=== PATIENT | male | born 1930 | race Caucasian/White ===

== ENCOUNTER 2018-05-11 18:51 | Inpatient (IN) | payer MEDICARE ==
[2018-05-11] MEDS ORDERED: Sodium Chloride 0.9% 1000 ML 1,000 ML IV STA ×2 (19:21→21:31)
--- NOTE | 2018-05-11 19:30 | ERPHSYRPT ---
- History of Present Illness Time Seen by Provider: 05/11/18 19:15 Source: patient Exam Limitations: no limitations Patient Subjective Stated Complaint: AMS, weakness, not seen in 24+ hours Triage Nursing Assessment: Pt presents to the ED with complaints of AMS per family. Family states pt lives alone, last seen normal was Wednesday morning at 0700. Pt has slurred speech on arrival, head start teacher weak but equal, no distress noted , skin pwd. Pt has slurred speech, face symmetrical. Abrasion noted to left ribs. Family states pt was found on floor at home. Physician History: 88 y/o male brought in by family after being found on the floor for over 24 hours. The son spoke to his father yesterday morning and he seemed fine. However , the last time the patient was seen was almost 2 days ago at which time the patient was fine. This afternoon, the son found him on the floor, very lethargic and confused. Pt did urinate on himself. According to the family, he appears very confused and say that this is not his baseline. In the ER, patient has no complaints but does arrive with a contusion on his right forehead and left lower ribs. Occurred: yesterday Reason for Fall: unknown Injuries/Pain Location: head, chest Loss of Consciousness: unsure Allergies/Adverse Reactions: morphine Allergy (Mild, Verified 05/11/18 19:22) Hx Tetanus, Diphtheria Vaccination/Date Given: Yes Hx Influenza Vaccination/Date Given: Yes Hx Pneumococcal Vaccination/Date Given: Yes Immunizations Up to Date: Yes - Review of Systems Constitutional: Weakness, No Fever, No Chills Eyes: No Symptoms Ears, Nose, & Throat: No Symptoms Respiratory: No Cough, No Dyspnea Cardiac: No Chest Pain, No Edema, No Syncope Abdominal/Gastrointestinal: No Abdominal Pain, No Nausea, No Vomiting, No Diarrhea Genitourinary Symptoms: No Dysuria Musculoskeletal: No Back Pain, No Neck Pain Skin: No Rash Neurological: Lethargy, No Dizziness, No Focal Weakness, No Sensory Changes Psychological: No Symptoms Endocrine: No Symptoms All Other Systems: Reviewed and Negative - Past Medical History Pertinent Past Medical History: No Neurological History: No Pertinent History ENT History: No Pertinent History Cardiac History: Myocardial Infarction ([place]) Respiratory History: No Pertinent History Endocrine Medical History: No Pertinent History Musculoskeletal History: No Pertinent History GI Medical History: No Pertinent History History: No Pertinent History Psycho-Social History: No Pertinent History Male Reproductive Disorders: No Pertinent History - Past Surgical History Past Surgical History: Yes Neuro Surgical History: No Pertinent History Cardiac: CABG Respiratory: No Pertinent History Gastrointestinal: Hernia Repair Genitourinary: No Pertinent History Musculoskeletal: No Pertinent History Male Surgical History: No Pertinent History Other Surgical History: CABG March 2012, Hernia repair April, - Social History Smoking Status: Former smoker Exposure to second hand smoke: No Drug Use: none Patient Lives Alone: No - Nursing Vital Signs Nursing Vital Signs: Initial Vital Signs Temperature 98.4 F 05/11/18 19:15 Pulse Rate 60 05/11/18 19:15 Respiratory Rate 21 05/11/18 19:15 Blood Pressure 173/56 05/11/18 19:15 O2 Sat by Pulse Oximetry 98 05/11/18 19:15 Pain Scale Pain Intensity 0 - Claudio Coma Score Best Eye Response (Cornell): (4) open spontaneously Best Verbal Response (Cornell): (5) oriented Best Motor Response ([place]): (6) obeys commands Cornell Total: 15 - Physical Exam General Appearance: alert, lethargy, cachetic Head Injury: ecchymosis Eye Exam: PERRL/EOMI, eyes nml inspection ENT Exam: airway nml Neck Exam: supple, trachea midline, normal inspection, No tenderness Respiratory/Chest Exam: normal breath sounds, No chest tenderness, No respiratory distress Cardiovascular Exam: normal heart sounds, regular rate/rhythm Gastrointestinal Exam: soft, normal bowel sounds, No tenderness, No distention, No guarding, No ecchymosis Back Exam: normal inspection, normal range of motion, No vertebral tenderness Extremity Exam: normal inspection, normal range of motion, pelvis stable, No deformities Neurologic Exam: alert, oriented x 3, cooperative, sensation nml, No motor deficits Skin Exam: normal color, warm, dry SpO2: 98 Oxygen Delivery: Room Air - Course Nursing assessment & vital signs reviewed: Yes EKG Interpreted by Me: NORMAL AXIS, NORMAL INTERVALS, Left Bundle Branch Block, Other (HR 62) Ordered Tests: Active Orders 24 hr Category Date Time Status EKG-ER Only STAT Care 05/11/18 19:21 Active Carnes [Catheter-Charlotte Carnes] STAT Care 05/11/18 22:53 Active IV Insertion STAT Care 05/11/18 19:21 Active Straigth Cath [Cath for Specimen-Straight] STAT Care 05/11/18 22:26 Active ABDOMEN AND PELVIS W/0 CONTRAS [CT] Stat Exams 05/11/18 19:33 Taken CERVICAL SPINE WO CONTRAST [CT] Stat Exams 05/11/18 19:22 Taken CHEST WITHOUT CONTRAST [CT] Stat Exams 05/11/18 19:22 Taken HEAD WITHOUT CONTRAST [CT] Stat Exams 05/11/18 19:22 Taken LUMBAR SPINE W/O [CT] Stat Exams 05/11/18 19:22 Taken CBC W DIFF Stat Lab 05/11/18 19:20 Completed CK-Creatinine Phosphokinase Stat Lab 05/11/18 19:20 Completed CMP Stat Lab 05/11/18 19:20 Completed CULTURE,URINE Stat Lab 05/11/18 23:45 Received ETHYL ALCOHOL Stat Lab 05/11/18 19:20 Completed PROTIME WITH INR Stat Lab 05/11/18 19:20 Completed PTT Stat Lab 05/11/18 19:20 Completed TROPONIN Q3H Lab 05/11/18 19:20 Completed TROPONIN Q3H Lab 05/11/18 22:45 Completed UA W/ MICROSCOPIC Stat Lab 05/11/18 23:45 Completed Urine Triage Profile Stat Lab 05/11/18 19:21 Ordered Medication Summary Generic Name Dose Route Start Last Admin Trade Name Freq PRN Reason Stop Dose Admin Sodium Chloride 1,000 mls @ 100 mls/hr 05/12/18 00:15 Sodium Chloride 0.9% 1000 Ml IV 06/11/18 00:14 .Q10H STACEY Ceftriaxone Sodium/Dextrose 1 g in 50 mls @ 100 mls/hr 05/12/18 00:17 Rocephin 1 Gm-D5w 50 Ml Bag IV 05/12/18 00:46 STAT ONE Discontinued Medications Generic Name Dose Route Start Last Admin Trade Name Freq PRN Reason Stop Dose Admin Sodium Chloride 1,000 mls @ 999 mls/hr 05/11/18 19:21 05/11/18 20:37 Sodium Chloride 0.9% 1000 Ml IV 05/11/18 20:21 Infused .Q1H1M STA Infusion Sodium Chloride Confirm 05/11/18 19:38 Sodium Chloride 0.9% 1000 Ml Administered 05/11/18 19:39 Dose 1,000 mls @ ud .ROUTE .STK-MED ONE Sodium Chloride Confirm 05/11/18 20:33 Sodium Chloride 0.9% 1000 Ml Administered 05/11/18 20:34 Dose 1,000 mls @ ud .ROUTE .STK-MED ONE Sodium Chloride 1,000 mls @ 999 mls/hr 05/11/18 21:31 05/11/18 22:09 Sodium Chloride 0.9% 1000 Ml IV 05/11/18 22:31 Infused .Q1H1M STA Infusion Lab/Rad Data: Laboratory Result Diagrams 05/11/18 19:20 05/11/18 19:20 Laboratory Results 05/11/18 05/11/18 05/11/18 Range/Units 23:45 22:45 20:10 WBC (4.0-10.5) K/mm3 RBC (4.1-5.6) M/mm3 Hgb (12.5-18.0) gm/dl Hct (42-50) % MCV (78-100) fl MCH (26-32) pg MCHC (32-36) g/dl RDW (11.5-14.0) % Plt Count (150-450) K/mm3 MPV (6-9.5) fl Gran % (36.0-66.0) % Eos # (Auto) (0-0.5) Absolute Lymphs (auto) (1.0-4.6) Absolute Monos (auto) (0.0-1.3) Lymphocytes % (24.0-44.0) % Monocytes % (0.0-12.0) % Eosinophils % (0.00-5.0) % Basophils % (0.0-0.4) % Absolute Granulocytes (1.4-6.9) Basophils # (0-0.4) PT (8.83-12.87) SECONDS INR (0.8-3.0) APTT (24.1-36.1) SECONDS Sodium (137-145) mmol/L Potassium (3.5-5.1) mmol/L Chloride (98-107) mmol/L Carbon Dioxide (22-30) mmol/L Anion Gap (5-15) MEQ/L BUN (9-20) mg/dL Creatinine (0.66-1.25) mg/dL Estimated GFR ML/MIN Glucose (74-106) mg/dL Calcium (8.4-10.2) mg/dL Total Bilirubin (0.2-1.3) mg/dL AST (17-59) U/L ALT (0-50) U/L Alkaline Phosphatase (38-126) U/L Creatine Kinase (55-170) U/L Troponin I 0.654 H* (0.000-0.034) ng/mL Serum Total Protein (6.3-8.2) g/dL Albumin (3.5-5.0) g/dL Ur Collection Type VOID Urine Color BROWN (YELLOW) Urine Appearance VERY CLOUDY (CLEAR) Urine pH 5.0 (5-6) Ur Specific [place] 1.025 (1.005-1.025) Urine Protein 100 (Negative) Urine Ketones SMALL (NEGATIVE) Urine Blood LARGE (0-5) Angelo/ul Urine Nitrite NEGATIVE (NEGATIVE) Urine Bilirubin NEGATIVE (NEGATIVE) Urine Urobilinogen NORMAL (0-1) mg/dL Ur Leukocyte Esterase TRACE (NEGATIVE) Urine Microscopic RBC >100 (0-2) /HPF Urine Microscopic WBC 10-15 (0-5) /HPF Ur Epithelial Cells FEW (FEW) /HPF Urine Bacteria MODERATE (NEGATIVE) /HPF Urine Culture Reflexed YES (NO) Urine Glucose NEGATIVE (NEGATIVE) mg/dL Ethyl Alcohol (0-10) mg/dL Slides for Path Review Specimen Received 05/11 2345 ABO Group O Rh Factor POSITIVE Antibody Screen NEGATIVE (NEGATIVE) 05/11/18 05/11/18 05/11/18 Range/Units 19:20 19:20 19:20 WBC (4.0-10.5) K/mm3 RBC (4.1-5.6) M/mm3 Hgb (12.5-18.0) gm/dl Hct (42-50) % MCV (78-100) fl MCH (26-32) pg MCHC (32-36) g/dl RDW (11.5-14.0) % Plt Count (150-450) K/mm3 MPV (6-9.5) fl Gran % (36.0-66.0) % Eos # (Auto) (0-0.5) Absolute Lymphs (auto) (1.0-4.6) Absolute Monos (auto) (0.0-1.3) Lymphocytes % (24.0-44.0) % Monocytes % (0.0-12.0) % Eosinophils % (0.00-5.0) % Basophils % (0.0-0.4) % Absolute Granulocytes (1.4-6.9) Basophils # (0-0.4) PT 14.6 H (8.83-12.87) SECONDS INR 1.25 (0.8-3.0) APTT 30.8 (24.1-36.1) SECONDS Sodium (137-145) mmol/L Potassium (3.5-5.1) mmol/L Chloride (98-107) mmol/L Carbon Dioxide (22-30) mmol/L Anion Gap (5-15) MEQ/L BUN (9-20) mg/dL Creatinine (0.66-1.25) mg/dL Estimated GFR ML/MIN Glucose (74-106) mg/dL Calcium (8.4-10.2) mg/dL Total Bilirubin (0.2-1.3) mg/dL AST (17-59) U/L ALT (0-50) U/L Alkaline Phosphatase (38-126) U/L Creatine Kinase > 1600 H (55-170) U/L Troponin I 0.677 H* (0.000-0.034) ng/mL Serum Total Protein (6.3-8.2) g/dL Albumin (3.5-5.0) g/dL Ur Collection Type Urine Color (YELLOW) Urine Appearance (CLEAR) Urine pH (5-6) Ur Specific [place] (1.005-1.025) Urine Protein (Negative) Urine Ketones (NEGATIVE) Urine Blood (0-5) Angelo/ul Urine Nitrite (NEGATIVE) Urine Bilirubin (NEGATIVE) Urine Urobilinogen (0-1) mg/dL Ur Leukocyte Esterase (NEGATIVE) Urine Microscopic RBC (0-2) /HPF Urine Microscopic WBC (0-5) /HPF Ur Epithelial Cells (FEW) /HPF Urine Bacteria (NEGATIVE) /HPF Urine Culture Reflexed (NO) Urine Glucose (NEGATIVE) mg/dL Ethyl Alcohol (0-10) mg/dL Slides for Path Review Specimen Received ABO Group Rh Factor Antibody Screen (NEGATIVE) 05/11/18 05/11/18 Range/Units 19:20 19:20 WBC 16.8 H (4.0-10.5) K/mm3 RBC 4.46 (4.1-5.6) M/mm3 Hgb 13.2 (12.5-18.0) gm/dl Hct 38.0 L (42-50) % MCV 85.2 (78-100) fl MCH 29.6 (26-32) pg MCHC 34.7 (32-36) g/dl RDW 13.9 (11.5-14.0) % Plt Count 135 L (150-450) K/mm3 MPV 10.3 H (6-9.5) fl Gran % 85.7 H (36.0-66.0) % Eos # (Auto) 0 (0-0.5) Absolute Lymphs (auto) 0.82 L (1.0-4.6) Absolute Monos (auto) 1.56 H (0.0-1.3) Lymphocytes % 4.9 L (24.0-44.0) % Monocytes % 9.3 (0.0-12.0) % Eosinophils % 0.0 (0.00-5.0) % Basophils % 0.1 (0.0-0.4) % Absolute Granulocytes 14.42 H (1.4-6.9) Basophils # 0.01 (0-0.4) PT (8.83-12.87) SECONDS INR (0.8-3.0) APTT (24.1-36.1) SECONDS Sodium 143 (137-145) mmol/L Potassium 4.4 (3.5-5.1) mmol/L Chloride 109 H (98-107) mmol/L Carbon Dioxide 21 L (22-30) mmol/L Anion Gap 18.0 H (5-15) MEQ/L BUN 58 H (9-20) mg/dL Creatinine 1.75 H (0.66-1.25) mg/dL Estimated GFR 39.3 ML/MIN Glucose 102 (74-106) mg/dL Calcium 9.6 (8.4-10.2) mg/dL Total Bilirubin 2.20 H (0.2-1.3) mg/dL AST 539 H (17-59) U/L ALT 124 H (0-50) U/L Alkaline Phosphatase 64 (38-126) U/L Creatine Kinase (55-170) U/L Troponin I (0.000-0.034) ng/mL Serum Total Protein 5.6 L (6.3-8.2) g/dL Albumin 3.5 (3.5-5.0) g/dL Ur Collection Type Urine Color (YELLOW) Urine Appearance (CLEAR) Urine pH (5-6) Ur Specific [place] (1.005-1.025) Urine Protein (Negative) Urine Ketones (NEGATIVE) Urine Blood (0-5) Angelo/ul Urine Nitrite (NEGATIVE) Urine Bilirubin (NEGATIVE) Urine Urobilinogen (0-1) mg/dL Ur Leukocyte Esterase (NEGATIVE) Urine Microscopic RBC (0-2) /HPF Urine Microscopic WBC (0-5) /HPF Ur Epithelial Cells (FEW) /HPF Urine Bacteria (NEGATIVE) /HPF Urine Culture Reflexed (NO) Urine Glucose (NEGATIVE) mg/dL Ethyl Alcohol < 10 (0-10) mg/dL Slides for Path Review YES Specimen Received ABO Group Rh Factor Antibody Screen (NEGATIVE) - Progress Progress: improved Progress Note: 05/12/18 00:34 The patient has a CPK over 1600 and has a UTI. Pt has been giving 2 bags of NS fluids and a dose of rocephin for the UTI. 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 The CT chest/abd/pelvis shows a fatty liver but no other acute findings. Pt has an elevation in his liver enzymes. Pt has a troponin elevation which has come down. The patient has shown improvement in his mental state and looks better. Pt has been admitted to Dr Sommers for rhabomyolysis and UTI. 05/12/18 00:40 - Departure Time of Disposition: 00:42 Departure Disposition: In-patient Admission Clinical Impression: Rhabdomyolysis Qualifiers: Rhabdomyolysis type: non-traumatic Qualified Code(s): M62.82 - Rhabdomyolysis UTI (urinary tract infection) Qualifiers: Urinary tract infection type: acute cystitis Hematuria presence: without hematuria Qualified Code(s): N30.00 - Acute cystitis without hematuria Altered mental state Qualifiers: Altered mental status type: unspecified Qualified Code(s): R41.82 - Altered mental status, unspecified Condition: Fair Critical Care Time: Yes Critical Care Time(excluding separately billable procedures): 30-74 minutes Referrals: JEFF ARDON [Primary Care Provider] -
[2018-05-11] MEDS ORDERED: Sodium Chloride 0.9% 1000 ML 1,000 ML ONE ×2 (19:38→20:33)
[2018-05-11 20:26] LABS: BASOPHIL % 0.1 % (0.0-0.4); Basophil (Absolute #) 0.01 (0-0.4); Eosinophil (Absolute #) 0 (0-0.5); Granulocyte Absolute (ANC) 14.42 (1.4-6.9); Granulocytes % 85.7 % (36.0-66.0); Hemoglobin 13.2 gm/dl (12.5-18.0); Lymphocyte (Absolute #) 0.82 (1.0-4.6); Lymphocytes % 4.9 % (24.0-44.0); Mean Cell Volume 85.2 fl (78-100); Mean Corpuscular Hemoglobin 29.6 pg (26-32); Mean Corpuscular Hgb Concent. 34.7 g/dl (32-36); Mean Platelet Volume 10.3 fl (6-9.5); Monocyte (Absolute #) 1.56 (0.0-1.3); Monocytes % 9.3 % (0.0-12.0); Platelet Count 135 K/mm3 (150-450); Red Blood Count 4.46 M/mm3 (4.1-5.6); Red Cell Distribution Width 13.9 % (11.5-14.0); White Blood Count 16.8 K/mm3 (4.0-10.5)
[2018-05-11 20:42] LABS: INR 1.25 (0.8-3.0)
[2018-05-11 20:44] LABS: PTT 30.8 SECONDS (24.1-36.1)
[2018-05-11 20:48] LABS: ALBUMIN 3.5 g/dL (3.5-5.0); ALKALINE PHOSPHATASE 64 U/L (38-126); BLOOD UREA NITROGEN 58 mg/dL (9-20); CHLORIDE 109 mmol/L (98-107); Calcium 9.6 mg/dL (8.4-10.2); Carbon Dioxide 21 mmol/L (22-30); Creatinine 1 1.75 mg/dL (0.66-1.25); Glucose 102 mg/dL (74-106); Potassium 4.4 mmol/L (3.5-5.1); SGOT/AST 539 U/L (17-59); SGPT/ALT 124 U/L (0-50); SODIUM 143 mmol/L (137-145); Total Protein 5.6 g/dL (6.3-8.2)
[2018-05-11 20:51] LABS: ETHYL ALCOHOL < 10 mg/dL (0-10)
[2018-05-11 21:51] LABS: ABO TYPING O; Antibody Screen NEGATIVE (NEGATIVE); RH TYPING POSITIVE
[2018-05-11 22:22] LABS: Slide Review 1 YES
[2018-05-12 00:08] LABS: Appearance VERY CLOUDY (CLEAR); Specific Gravity 1.025 (1.005-1.025)
[2018-05-12 00:09] LABS: Bilirubin NEGATIVE (NEGATIVE); Blood LARGE Ery/ul (0-5); Glucose NEGATIVE (NEGATIVE); Ketones SMALL (NEGATIVE); Leukocyte Esterase TRACE (NEGATIVE); Nitrite NEGATIVE (NEGATIVE); Protein,Urine Dip 100 (Negative); Urobilinogen NORMAL mg/dL (0-1)
[2018-05-12 00:10] LABS: Bacteria MODERATE /HPF (NEGATIVE); Epithelial Cells FEW /HPF (FEW); RBC >100 /HPF (0-2)
[2018-05-12] MEDS ORDERED: Sodium Chloride 0.9% 1000 ML 1,000 ML IV SCH ×2 (00:15→00:45)
[2018-05-12] MEDS ORDERED: ROCEPHIN 1 Gm-D5w 50 ml Bag** 1 G/50 ML IVPB IV ONE ×2 (00:17→00:50)
[2018-05-12 01:36] LABS: Amphetamine,Urine NEGATIVE (NEGATIVE); Barbiturate,Urine NEGATIVE (NEGATIVE); Benzodiazepine,Urine NEGATIVE (NEGATIVE); Cocaine,Urine NEGATIVE (NEGATIVE); Methadone,Urine NEGATIVE (NEGATIVE); Opiate,Urine NEGATIVE (NEGATIVE); PCP,Urine NEGATIVE (NEGATIVE); THC,Urine NEGATIVE (NEGATIVE)
[2018-05-12] MEDS ORDERED: Haldol 5 MG IM ONE ×2 (04:50→05:04)
[2018-05-12] MEDS ORDERED: Haldol 5 MG ONE (04:57)
[2018-05-12 06:02] LABS: BASOPHIL % 0.1 % (0.0-0.4); Basophil (Absolute #) 0.01 (0-0.4); Eosinophil (Absolute #) 0 (0-0.5); Granulocyte Absolute (ANC) 14.21 (1.4-6.9); Granulocytes % 86.7 % (36.0-66.0); Hematocrit 37.9 % (42-50); Hemoglobin 12.9 gm/dl (12.5-18.0); Lymphocyte (Absolute #) 0.79 (1.0-4.6); Lymphocytes % 4.8 % (24.0-44.0); Mean Cell Volume 85.6 fl (78-100); Mean Corpuscular Hemoglobin 29.1 pg (26-32); Mean Platelet Volume 10.8 fl (6-9.5); Monocyte (Absolute #) 1.38 (0.0-1.3); Monocytes % 8.4 % (0.0-12.0); Platelet Count 131 K/mm3 (150-450); Red Blood Count 4.43 M/mm3 (4.1-5.6); White Blood Count 16.4 K/mm3 (4.0-10.5)
[2018-05-12 07:21] LABS: ALBUMIN 3.5 g/dL (3.5-5.0); BILIRUBIN,TOTAL 1.5 mg/dL (0.2-1.3); Calcium 9.1 mg/dL (8.4-10.2); Creatinine 1 1.59 mg/dL (0.66-1.25); Potassium 4.3 mmol/L (3.5-5.1); Total Protein 5.7 g/dL (6.3-8.2)
[2018-05-12 07:45] LABS: ANION GAP 16.3 MEQ/L (5-15)
[2018-05-12 07:47] LABS: TROPONIN 0.497 ng/mL (0.000-0.034)
[2018-05-12] MEDS ORDERED: PHARMACY DOSING REQUEST MC ONE (08:53)
--- NOTE | 2018-05-12 08:54 | XRAY ---
Indication: Acute mental status change. Status post fall. Multiple contiguous axial images obtained through the head without contrast. Comparison: None Left ear hearing aid produces beam artifact limiting these levels. 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 Age-appropriate global atrophy and moderate periventricular degenerative micro-ischemia bilaterally. No acute intracranial hemorrhage, abnormal extra-axial fluid collection, or mass effect. Fourth ventricle is midline. Bony calvarium intact. Visualized paranasal sinuses and mastoid air cells are clear. Impression: 1. Left hearing aid artifact. 2. No gross acute intracranial abnormalities. 3. Incidental atrophy, degenerative micro-ischemia, and old left parietal infarct. CT DI 59.47
[2018-05-12] MEDS ORDERED: Dextrose 5% -0.45 NaCl 1000 ML 1,000 ML IV SCH (09:00)
--- NOTE | 2018-05-12 09:04 | XRAY ---
Indication: Acute mental status change. Status post fall. Multiple contiguous axial images obtained through the abdomen and pelvis without contrast as ordered. Comparison: None CT chest reported separately. Noncontrasted stomach and bowel loops appear nonobstructed. There is moderate diffuse scattered colonic fecal debris throughout. Also scattered colonic diverticulosis greatest in the sigmoid without evidence for diverticulitis. No free fluid/air. Fatty liver, enlarged prostate gland, and previous cholecystectomy. Remaining liver, pancreas, spleen, adrenal glands, kidneys, ureters, and bladder appear unremarkable for noncontrast exam. Heavy scattered vascular calcifications including renal arteries bilaterally. 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 Also bilateral L5 spondylolysis with 10 mm spondylolisthesis. Tiny left femur head bone island and tiny bilateral femur head subcortical cysts. Impression: 1. No acute intra-abdominal/pelvic abnormalities on this noncontrast exam. 2. Fecal stasis without obstruction. Also diffuse colonic diverticulosis without diverticulitis. 2. Incidental fatty liver and enlarged prostate gland. 3. Bony findings including multilevel degenerative spondylosis, dextrorotoscoliosis, and L5 spondylolysis with grade [address] DI 13.59
--- NOTE | 2018-05-12 09:06 | XRAY ---
Indication: Acute mental status change. Status post fall. Multiple contiguous axial images obtained through the cervical spine. Sagittal and coronal reformatted images obtained. Comparison: None Age-related osteopenia. Axial images negative for acute fracture, suspicious bony lesions, or spinal canal stenosis. Mild C3-T1 degenerative endplate spurring and mild multilevel bilateral degenerative facet arthropathy. Sagittal and coronal reformatted images demonstrates lordotic reversal, positional versus paraspinal spasm. C3-T1 disc space loss. No acute compression fracture, subluxation, or jumped facet. Normal-appearing craniocervical junction. CT head and CT chest spine reported separately. Impression: 1. Cervical lordotic reversal, positional versus paraspinal spasm. 2. Negative acute fracture/subluxation. 3. Osteopenia and multilevel degenerative changes. CT DI 44.78
[2018-05-12] MEDS: Zosyn 3.375GM/100 Ml D5W 3.375 GM/100 ML IVPB IV SCH ×2 (09:54→22:19)
[2018-05-12] MEDS: PROTONIX 40 MG IV IV SCH (10:10)
--- NOTE | 2018-05-12 10:26 | HP ---
HISTORY OF PRESENT ILLNESS: This is an 88 year-old man who presented to the emergency department with one of his sons. I spoke with Piyush Alberto this morning. He stated he last talked to his dad Wednesday and then checked on him last night which would have been Wednesday night and found him on the floor. He stated it looked like maybe had tripped when he was trying to take his pants off and had probably hit his head either on a coffee table. His glasses were under the table in the living room or bedroom and then he drug himself into the kitchen and was lying on one of his hips. He reports that he is usually fairly healthy. He usually follows up at the [facility] for his medical care. He had not been complaining of any problems recently. He does have a history of coronary artery disease and had double bypass March 2012. His son also reported having 7 inches of his thoracic aorta removed. He said he does take an aspirin every day but does not really follow up with a dollyman since then except at the [facility]. He states he has always been pretty thin and weighed 142 pounds when he was at the [facility] last fall. No history of any hepatitis. He has had his gallbladder taken out in the . He has not been complaining of any abdominal pain. He did become combative and pulled out his IV overnight and required Haldol 1 mg IM once. REVIEW OF SYSTEMS: Today the patient seems to have some right upper quadrant pain and epigastric pain. Although when asked denies any pain at this time. He was not complaining of any pain to his family when he was last spoken to. No history of any liver problems. He does not drink alcohol they said. Otherwise review of systems is unobtainable due to altered mental status. PAST MEDICAL HISTORY: Benign prostatic hypertrophy, coronary artery disease. PAST SURGICAL HISTORY: Cholecystectomy. Hernia repair March 2012. Double bypass and aorta operation in March 2012. MEDICATIONS: Please see the home medication list. ALLERGIES: MORPHINE MAKES HIM ANGRY. SOCIAL HISTORY: He lives alone. No alcohol. No tobacco that he smokes but he chews tobacco. He son states he eats three good meals a day. FAMILY HISTORY: His mother is . His father is and of jaw cancer at age 53. His sister is and of a stroke in her 70's. PHYSICAL EXAMINATION: VITAL SIGNS: Temperature current 97.4F, temperature max 98.4F, heart rate 16 to 20, respiratory rate 20 to 24, blood pressure 128 to 180 over 51 to 84, weight 57.1 kg. Oxygen saturation 93 to 98% on room air. GENERAL: The patient is lying in bed. He is sleeping. He does arouse when I ask him what his name is or where he is. I cannot understand what he is saying but when I asked other questions I can understand what he is saying. He denies any abdominal pain. CVS: He has a regular rate and rhythm. No murmurs, gallops or rubs are appreciated. CHEST: Clear to auscultation anteriorly. ABDOMEN: He has normal bowel sounds. Mild right upper quadrant and epigastric tenderness. No guarding. No rigidity. EXTREMITIES: No clubbing, cyanosis or edema. SKIN: He has some bruises on his forehead and hematoma on his right forearm. LABORATORY DATA AND TESTS: On admission his white blood cell count was 16,800 and now 16,400. International normalized ratio 1.2. Carbon dioxide 20. Creatinine 1.59. Bilirubin 1.5, AST 527, ALT 147. Troponin 0.653 on admission down to 0.499. Protein 5.7. UA revealed 10-15 white blood cells, moderate bacteria. Urine tox was negative. He also had small ketones in his urine and large blood. The urine was noted to be brown. He had CT scan of his abdomen and pelvis with no acute abnormalities. Head CT with no acute abnormalities. Cervical spine CT with no acute abnormalities. He also had chest CT and lumbar CT. I spoke with the radiologist. He said there were no acute findings on any of these studies. Please see the radiologist dictation for the full reports on these. EKG sinus arrhythmia with left bundle branch block. Heart rate 60 this a.m. ASSESSMENT AND PLAN: 1) ALTERED MENTAL STATUS: Will continue with close monitoring. He had the head CT that did not show any acute bleed. It may be related to dehydration as he may have been on the floor for 24 hours or more. 2) RHABDOMYOLYSIS: He has been getting IV fluids. I will recheck his CPK this morning. 3) ACUTE RENAL FAILURE: He is getting fluids. His potassium is within normal limits. I will recheck his creatinine in the a.m. 4) ELEVATED LIVER FUNCTION TEST: Checking a right upper quadrant ultrasound and hepatitis panel. 5) RIGHT UPPER QUADRANT EPIGASTRIC PAIN: I started Protonix and he has Tylenol ordered as needed for pain. Again will check gallbladder ultrasound. He was on ceftriaxone and changing this to Zosyn for broader coverage. 6) FALL: He is on fall precautions now. When he is able to will plan for PT evaluation. 7) ELEVATED TROPONINS: Will ask for the local dollyman to see him. 8) HISTORY OF CORONARY ARTERY DISEASE: Will continue with aspirin 81 mg daily. 9) HISTORY OF BENIGN PROSTATIC HYPERTROPHY. 10) THROMBOCYTOPENIA: Will recheck his CBC again in the morning and hold off on any Lovenox for deep venous thrombosis. 11) CODE STATUS: Code status was discussed with his sons as he wished to be a full code. 12) URINARY TRACT INFECTION: Urine culture in lab. Again, he received a dose of ceftriaxone and changed this to Zosyn. 13) DEEP VENOUS THROMBOSIS PROPHYLAXIS: I have ordered SCD and CHARU hose.
[2018-05-12] MEDS: Haldol 5 MG IM PRN ×2 (11:10→15:53)
--- NOTE | 2018-05-12 11:13 | XRAY ---
Indication: Acute mental status change. Status post fall. Multiple contiguous axial images obtained through the lumbar spine. Sagittal and coronal reformatted images obtained. Comparison: None Age-related osteopenia. Axial images negative for acute fracture or suspicious bony lesions. Moderate L2-S1 degenerative disc osteophyte complex with degenerative vacuum disc phenomena and bilateral degenerative facet arthropathy. Sagittal and coronal reformatted images demonstrates moderate dextrorotoscoliosis centered at L1-L2. L2-S1 disc space loss. No acute compression fracture. There is bilateral L5 spondylolysis with [address] abdomen/pelvis reported separately. Impression: 1. Negative acute fracture. 2. Osteopenia and multilevel degenerative disc disease. 3. Bilateral L5 spondylolysis with grade 2 spondylolisthesis. [address] DI 132.02
--- NOTE | 2018-05-12 11:16 | XRAY ---
Indication: Acute mental status change. Status post fall. Multiple contiguous axial images obtained through the chest without contrast as ordered. Comparison: None Lungs inflated with mild bilateral dependent atelectasis and biapical pleural parenchymal fibrosis/scarring. No suspicious pulmonary mass, infiltrate, effusion, or pneumothorax. Heart is enlarged with previous CABG surgery. Aorta is mildly arteriosclerotic. No pathologic mediastinal lymphadenopathy. Bony thorax intact with minimal degenerative changes throughout the spine and sternotomy wires. CT abdomen reported separately. Impression: 1. Cardiomegaly without CHF. 2. Bilateral dependent atelectasis and biapical fibrosis/scarring. 3. No acute cardiopulmonary abnormalities on this noncontrast exam. CT DI 12.96
--- NOTE | 2018-05-12 11:17 | XRAY ---
Indication: Elevated bilirubin and liver function testing. Cholecystectomy. Two-dimensional right upper quadrant abdominal sonogram performed. Comparison: None Internal Control Manager notes technically difficult exam due to uncooperative patient and excessive bowel loops. Gallbladder surgically absent. Common bile duct measures 4.9 mm. No abnormal intrahepatic biliary distention. Remaining visualized portions of the liver, pancreas, and right kidney appear sonographically unremarkable. Right kidney measures 7.9 cm in length. No ascites. Impression: Cholecystectomy. Remaining right upper quadrant sonogram negative.
[2018-05-12] MEDS: BABY ASPIRIN 81 MG CHEW PO SCH (11:22)
[2018-05-12 11:29] LABS: AMYLASE 99 U/L (30-110); LIPASE 22 U/L (23-300)
--- NOTE | 2018-05-12 12:02 | CONS ---
CONSULT DATE: 05/12/2018 BRIEF HISTORY: This is an 88 year-old male who was seen because of elevated troponin I. The patient is unable to give any meaningful historic information but I did gather from him that he denies any chest pains. Apparently he presented to the emergency room after a relative found him on the floor and was suspected that he might have hit his head on the coffee table. He is known to have coronary artery disease, has had coronary bypass surgery in March 2012. He usually goes to the [facility] for his general medical care. 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 The records are not available. CARDIAC RISK FACTORS: Negative for diabetes. He has a history of hypertension. He smokes. REVIEW OF SYSTEMS: Unobtainable at this time. PAST SURGICAL HISTORY: Includes coronary bypass surgery, hernia repair. HOME MEDICATIONS: Includes aspirin, calcium, Flomax. SOCIAL HISTORY: He lives alone. He chews tobacco. PHYSICAL EXAMINATION: His blood pressure is 173/56, heart rate 60, respirations about 14. GENERAL: The patient is an elderly male who is a little bit sedated. He received Haldol earlier. His speech is still intelligible. HEENT: Slightly pale conjunctivae. NECK: No obvious JVD. CHEST: Healed sternotomy scar. The breath sounds are harsh with some rhonchi. CARDIAC: Heart tones are somewhat diminished. The rhythm is regular. There is a grade 2/6 mid systolic murmur. ABDOMEN: Soft with normal bowel sounds. EXTREMITIES: There is trace edema with decreased distal pulses. 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 He also had left bundle branch block. Troponin I now is 0.449. Creatinine 1.59. Bilirubin 1.5. SGPT 147, AST 527. White blood cell 16.4 with hemoglobin 10.9, PLT 131,000. IMPRESSION: 1) Elevated troponin I this probably is due to either an ischemic event or secondary to his recent supply and demand mismatch. We are going to get a creatinine kinase to rule out rhabdomyolysis. His elevated troponin I also may be due to renal failure duration of which is unknown. 2) As far as the passing out spells are concerned, we need to rule out bradyarrhythmia. Will avoid any negative chronotropic agents. He will likely need a Holter monitor on discharge. An echocardiogram will be obtained to assess left ventricular systolic function. Currently he denies any chest pains. I will follow up with you.
[2018-05-12] MEDS ORDERED: DEXTROSE IV ONE (18:32)
[2018-05-12] MEDS ORDERED: WATER IV ONE (18:32)
[2018-05-12] MEDS ORDERED: SODIUM BICARBONATE 50 MEQ/50 ML ABBOJECT IV ONE (18:33)
[2018-05-12] MEDS ORDERED: Geodon 20 MG INJ IM PRN (18:34)
[2018-05-12] MEDS ORDERED: THIAMINE 200 MG/2 ML IV ONE (18:40)
--- NOTE | 2018-05-12 18:42 | PCM.NOTE ---
Date and Time: 05/12/181836 Subjective Assessment: improving mental status concern over the elevation in his CK per cardiology unclear if nephrology will be able to see him tonight he states he would rather be then have to live with all this stuff hooked up to him right now His family is at bedside. Objective Exam General Appearance: no apparent distress, alert, other (oriented to person and place) Skin Exam: other (extensive abrasions) Eye Exam: other (pin point pupils) Respiratory Exam: normal breath sounds, lungs clear Cardiovascular Exam: regular rate/rhythm Gastrointestinal/Abdomen Exam: soft, normal bowel sounds, No tenderness Extremity Exam: No pedal edema OBJECTIVE DATA Vital Signs: Vital Signs - 24 hr Temp Pulse Resp BP Pulse Ox 05/12/18 16:29 97.7 F 84 20 132/94 95 05/12/18 12:00 98 F 84 20 118/68 96 05/12/18 07:23 97.7 F 78 20 128/68 95 05/12/18 04:00 97.8 F 78 16 132/84 93 L 05/12/18 02:56 97.8 F 61 20 180/71 98 05/12/18 00:43 98 05/12/18 00:40 60 18 97 05/11/18 23:11 69 16 159/59 97 05/11/18 22:05 65 18 177/51 98 05/11/18 19:15 98.4 F 60 21 173/56 98 Pain Assessment - Last Documented [facility] Intake and Output: Intake & Output 05/10/18 05/11/18 05/12/18 05/13/18 11:59 11:59 11:59 11:59 Intake Total 312 727 Output Total 950 Balance 312 -223 Weight 57.1 kg Lab Results: Lab Results-Last 24 Hours 05/12/18 05/12/18 05/12/18 Range/Units 05:00 05:10 07:00 WBC 16.4 H (4.0-10.5) K/mm3 RBC 4.43 (4.1-5.6) M/mm3 Hgb 12.9 (12.5-18.0) gm/dl Hct 37.9 L (42-50) % MCV 85.6 (78-100) fl MCH 29.1 (26-32) pg MCHC 34.0 (32-36) g/dl RDW 14.0 (11.5-14.0) % Plt Count 131 L (150-450) K/mm3 MPV 10.8 H (6-9.5) fl Gran % 86.7 H (36.0-66.0) % Eos # (Auto) 0 (0-0.5) Absolute Lymphs (auto) 0.79 L (1.0-4.6) Absolute Monos (auto) 1.38 H (0.0-1.3) Lymphocytes % 4.8 L (24.0-44.0) % Monocytes % 8.4 (0.0-12.0) % Eosinophils % 0.0 (0.00-5.0) % Basophils % 0.1 (0.0-0.4) % Absolute Granulocytes 14.21 H (1.4-6.9) Basophils # 0.01 (0-0.4) Sodium 143 (137-145) mmol/L Potassium 4.3 (3.5-5.1) mmol/L Chloride 111 H (98-107) mmol/L Carbon Dioxide 20 L (22-30) mmol/L Anion Gap 16.3 H (5-15) MEQ/L BUN 59 H (9-20) mg/dL Creatinine 1.59 H (0.66-1.25) mg/dL Estimated GFR 43.9 ML/MIN Glucose 101 (74-106) mg/dL Hemoglobin A1c (4.5-6.0) % Calcium 9.1 (8.4-10.2) mg/dL Total Bilirubin 1.50 H (0.2-1.3) mg/dL AST 527 H (17-59) U/L ALT 147 H (0-50) U/L Alkaline Phosphatase 64 (38-126) U/L Creatine Kinase (55-170) U/L Troponin I 0.497 H* 0.449 H* (0.000-0.034) ng/mL Serum Total Protein 5.7 L (6.3-8.2) g/dL Albumin 3.5 (3.5-5.0) g/dL Amylase (30-110) U/L Lipase (23-300) U/L TSH 3rd Generation (0.47-4.68) mIU/L 05/12/18 05/12/18 05/12/18 Range/Units 09:23 09:23 09:54 WBC (4.0-10.5) K/mm3 RBC (4.1-5.6) M/mm3 Hgb (12.5-18.0) gm/dl Hct (42-50) % MCV (78-100) fl MCH (26-32) pg MCHC (32-36) g/dl RDW (11.5-14.0) % Plt Count (150-450) K/mm3 MPV (6-9.5) fl Gran % (36.0-66.0) % Eos # (Auto) (0-0.5) Absolute Lymphs (auto) (1.0-4.6) Absolute Monos (auto) (0.0-1.3) Lymphocytes % (24.0-44.0) % Monocytes % (0.0-12.0) % Eosinophils % (0.00-5.0) % Basophils % (0.0-0.4) % Absolute Granulocytes (1.4-6.9) Basophils # (0-0.4) Sodium (137-145) mmol/L Potassium (3.5-5.1) mmol/L Chloride (98-107) mmol/L Carbon Dioxide (22-30) mmol/L Anion Gap (5-15) MEQ/L BUN (9-20) mg/dL Creatinine (0.66-1.25) mg/dL Estimated GFR ML/MIN Glucose (74-106) mg/dL Hemoglobin A1c (4.5-6.0) % Calcium (8.4-10.2) mg/dL Total Bilirubin (0.2-1.3) mg/dL AST (17-59) U/L ALT (0-50) U/L Alkaline Phosphatase (38-126) U/L Creatine Kinase 31384 H (55-170) U/L Troponin I (0.000-0.034) ng/mL Serum Total Protein (6.3-8.2) g/dL Albumin (3.5-5.0) g/dL Amylase 99 (30-110) U/L Lipase 22 L (23-300) U/L TSH 3rd Generation 1.150 (0.47-4.68) mIU/L 05/12/18 Range/Units 15:59 WBC (4.0-10.5) K/mm3 RBC (4.1-5.6) M/mm3 Hgb (12.5-18.0) gm/dl Hct (42-50) % MCV (78-100) fl MCH (26-32) pg MCHC (32-36) g/dl RDW (11.5-14.0) % Plt Count (150-450) K/mm3 MPV (6-9.5) fl Gran % (36.0-66.0) % Eos # (Auto) (0-0.5) Absolute Lymphs (auto) (1.0-4.6) Absolute Monos (auto) (0.0-1.3) Lymphocytes % (24.0-44.0) % Monocytes % (0.0-12.0) % Eosinophils % (0.00-5.0) % Basophils % (0.0-0.4) % Absolute Granulocytes (1.4-6.9) Basophils # (0-0.4) Sodium (137-145) mmol/L Potassium (3.5-5.1) mmol/L Chloride (98-107) mmol/L Carbon Dioxide (22-30) mmol/L Anion Gap (5-15) MEQ/L BUN (9-20) mg/dL Creatinine (0.66-1.25) mg/dL Estimated GFR ML/MIN Glucose (74-106) mg/dL Hemoglobin A1c 5.30 (4.5-6.0) % Calcium (8.4-10.2) mg/dL Total Bilirubin (0.2-1.3) mg/dL AST (17-59) U/L ALT (0-50) U/L Alkaline Phosphatase (38-126) U/L Creatine Kinase (55-170) U/L Troponin I (0.000-0.034) ng/mL Serum Total Protein (6.3-8.2) g/dL Albumin (3.5-5.0) g/dL Amylase (30-110) U/L Lipase (23-300) U/L TSH 3rd Generation (0.47-4.68) mIU/L Radiology Exams: Radiology Procedures Category Date Time Status ECHO W/2D AND DOPPLER [US] Routine Exams 05/12/18 12:00 Taken GALLBLADDER [US] Routine Exams 05/12/18 10:21 Completed Multi-Disciplinary Progress Notes: Multi-Disciplinary Progress Notes 05/12/18 09:29 Case Management Note by Roro Ambriz CALLED [facility] IN [place] [phone] AND S/W TIA, NO SERVICE CONNECTION FOR COVERAGE, USE MEDICARE AND MEDICAID, BUT PLEASE FAX CLINICALS TO [phone] FOR CONTINUITY OF CARE. Initialized on 05/12/18 09:29 - END OF NOTE 05/12/18 09:27 Pharmacy Note by Mehdi Love [facility] ZOSYN DOSING FOR ACUTE CHOLECYSTITIS PATIENT IS 88 YEAR OLD MALE WEIGHING 57 KG WITH ESTIMATED CREATININE CLEARANCE OF 25 ML/MIN WILL START HIM ON ZOSYN 3.375G IV Q 8 HRS AND ADJUST TOMORROW IF NEEDED Initialized on 05/12/18 09:27 - END OF NOTE Assessment/Plan (1) Rhabdomyolysis Current Visit: Yes Status: Acute Onset Date: ~05/12/18 Qualifiers: Rhabdomyolysis type: non-traumatic Qualified Code(s): M62.82 - Rhabdomyolysis Assessment & Plan: covering for Dr. Sommers his ck came back elevated and Dr. Garcia requested nephrology consult which was preformed but Dr. Gregory out and not clear if he will be seen tonight thus started on D5W with 150 mEq bicarb at 150 mL/h will repeat ck and bmp to monitor with his improved urine output and improved coloration of urine and mental status it appears to be improved continue reyes for accurate I/O measurement for now he is still suffering from delirium but his confusion is improving tonight but he is still trying to pull out the iv's intermittently but easier to reorient he can communicate appropriately and talk with intermittent confusion. the haloperidal didn't seem to help much will try change to low dose geodone at 10mg Dr. Garcia did see and orderd isoenzymes on the CK and echo that was preformed with results pending. his urine has improved to a clear dark yellow from brown this am per nursing Code(s): M62.82 - RHABDOMYOLYSIS (2) Acute kidney injury Current Visit: Yes Status: Acute Code(s): N17.9 - ACUTE KIDNEY FAILURE, UNSPECIFIED (3) UTI (urinary tract infection) Current Visit: Yes Status: Acute Onset Date: ~05/12/18 Qualifiers: Urinary tract infection type: acute cystitis Hematuria presence: without hematuria Qualified Code(s): N30.00 - Acute cystitis without hematuria Code(s): N39.0 - URINARY TRACT INFECTION, SITE NOT SPECIFIED (4) Acute metabolic encephalopathy Current Visit: Yes Status: Acute Code(s): G93.41 - METABOLIC ENCEPHALOPATHY
[2018-05-12] MEDS ORDERED: STERILE WATER FOR INJECTION ONE (19:08)
[2018-05-12] MEDS: Sodium Bicarbonate 50 MEQ/50 ML VIAL*** 150 MEQ in Dextrose 5%/Water IV Soln. 1000 ML 1... IV SCH (19:16)
[2018-05-12 19:28] LABS: ANION GAP 11.8 MEQ/L (5-15); Calcium 8.6 mg/dL (8.4-10.2); Creatinine 1 1.22 mg/dL (0.66-1.25); Potassium 3.7 mmol/L (3.5-5.1)
[2018-05-12] MEDS ORDERED: ROCEPHIN 1 Gm-D5w 50 ml Bag** 1 G/50 ML IVPB IV SCH (22:00)
[2018-05-13] MEDS ORDERED: Sodium Bicarbonate 50 MEQ/50 ML VIAL ONE ×2 (02:21→02:26)
[2018-05-13] MEDS ORDERED: Dextrose 5%/Water IV Soln. 1000 ML 1,000 ML IV ONE (02:30)
[2018-05-13] MEDS: Sodium Bicarbonate 50 MEQ/50 ML VIAL*** 150 MEQ in Dextrose 5%/Water IV Soln. 1000 ML 1... IV SCH (02:43)
[2018-05-13 05:22] LABS: HEPATITIS B VIRUS CORE TOT AB Non Reactive (Non Reactive); HEPATITIS C VIRUS ANTIBODY Non Reactive (Non Reactive); Hepatitis B Surface Antigen Non Reactive (Non Reactive)
[2018-05-13 06:03] LABS: BASOPHIL % 0.1 % (0.0-0.4); Basophil (Absolute #) 0.01 (0-0.4); Eosinophil % 0.1 % (0.00-5.0); Eosinophil (Absolute #) 0.01 (0-0.5); Granulocytes % 83.2 % (36.0-66.0); Hemoglobin 11.2 gm/dl (12.5-18.0); Lymphocyte (Absolute #) 0.67 (1.0-4.6); Lymphocytes % 7.6 % (24.0-44.0); Mean Cell Volume 85.5 fl (78-100); Mean Corpuscular Hgb Concent. 33.9 g/dl (32-36); Mean Platelet Volume 10.4 fl (6-9.5); Monocyte (Absolute #) 0.79 (0.0-1.3); Platelet Count 108 K/mm3 (150-450); Red Blood Count 3.86 M/mm3 (4.1-5.6); Red Cell Distribution Width 13.7 % (11.5-14.0); White Blood Count 8.8 K/mm3 (4.0-10.5)
[2018-05-13 06:22] LABS: ALBUMIN 2.6 g/dL (3.5-5.0); ALKALINE PHOSPHATASE 44 U/L (38-126); BLOOD UREA NITROGEN 33 mg/dL (9-20); CHLORIDE 107 mmol/L (98-107); Calcium 8.4 mg/dL (8.4-10.2); Carbon Dioxide 32 mmol/L (22-30); Creatinine 1 1.05 mg/dL (0.66-1.25); Glucose 138 mg/dL (74-106); Potassium 3.2 mmol/L (3.5-5.1); SGOT/AST 342 U/L (17-59); SGPT/ALT 140 U/L (0-50); SODIUM 144 mmol/L (137-145); Total Protein 4.6 g/dL (6.3-8.2)
[2018-05-13] MEDS: Zosyn 3.375GM/100 Ml D5W 3.375 GM/100 ML IVPB IV SCH ×3 (06:30→22:28)
[2018-05-13] MEDS ORDERED: Geodon 20 MG INJ IM PRN (07:30)
--- NOTE | 2018-05-13 07:39 | ECHO ---
Transthoracic echocardiographic examination and color Doppler was done on 05/12/2018. INDICATION: Congestive heart failure, elevated troponin I. IMPRESSION: 1) MILD GLOBAL LEFT VENTRICULAR HYPOKINESIA. EJECTION FRACTION 40%. 2) SCLEROTIC AORTIC VALVE WITH A PEAK TRANSAORTIC GRADIENT OF 16 MM OF MERCURY. 3) MODERATE AORTIC REGURGITATION. 4) MILD MITRAL REGURGITATION. 5) MILD TRICUSPID REGURGITATION. RIGHT VENTRICULAR SYSTOLIC PRESSURE OF 47 MM OF MERCURY. 6) LEFT VENTRICULAR HYPERTROPHY. 7) MILDLY DILATED LEFT ATRIUM. 8) LEFT VENTRICULAR DIASTOLIC DYSFUNCTION. The left ventricle is visualized and demonstrated mild left ventricular hypokinesia. Ejection fraction of about 40%. There is concentric moderate left ventricular hypertrophy. The mitral valve is calcified but opens adequately. There is mild mitral regurgitation. Left atrium is enlarged. The aortic valve is sclerotic. The peak gradient across the aortic valve is 16 mm of Mercury. There is some associated moderate aortic regurgitation. The right side chambers are normal. There is mild tricuspid regurgitation. The right ventricular systolic pressure of 47 mm of Mercury. The tissue Doppler study of the lateral mitral annulus is suggestive of left ventricular diastolic dysfunction.
[2018-05-13] MEDS ORDERED: Klor Con 10 MEQ PO ONE (09:03)
--- NOTE | 2018-05-13 09:07 | PCM.NOTE ---
Date and Time: 05/13/18906 Subjective Assessment: He reports some left sided chest pain where he has a large contusion from his fall at home. He states he is not really hungry. One of his sons and his daughter in law are at the bedside. Dr. Wang saw him last night also as Dr. Garcia had recommended a Nephrology consult but that was not readily available. His family feels like he is getting better. They report that his urine looks better. He had some confusion overnight and received a dose of Geodon. Objective Exam General Appearance: no apparent distress, thin, other (Oriented to person, thinks he is [place] and does not know the year but knows it is 2000 something. He knows his date.) Neurologic Exam: alert, cooperative, normal mood/affect Skin Exam: normal color, warm, other (large contusion on left anterior chest, abrasions on left arm, rug burn on left leg (no surrounding erythema or drainage ), large ecchymosis on right hip) Respiratory Exam: normal breath sounds, lungs clear, No crackles/rales, No rhonchi, No wheezing Cardiovascular Exam: regular rate/rhythm, normal heart sounds, No friction rub, No gallop, No tachycardia Gastrointestinal/Abdomen Exam: soft, normal bowel sounds, No tenderness, No distention, No mass Extremity Exam: other (no c/c/e) OBJECTIVE DATA Vital Signs: Vital Signs - 24 hr Temp Pulse Resp BP Pulse Ox 05/13/18 07:17 98 F 58 L 18 119/70 95 05/13/18 04:00 97.6 F 75 18 177/74 05/13/18 02:40 66 17 05/12/18 20:00 98.0 F 88 16 164/75 05/12/18 16:29 97.7 F 84 20 132/94 95 05/12/18 12:00 98 F 84 20 118/68 96 Pain Assessment - Last Documented Pain Scale Used [facility] Intake and Output: Intake & Output 05/11/18 05/12/18 05/13/18 05/14/18 06:59 06:59 06:59 06:59 Intake Total 312 2473 Output Total 1600 Balance 312 873 Weight 57.1 kg Lab Results: Lab Results-Last 24 Hours 06/14/18 06/14/18 06/14/18 Range/Units 09:23 09:23 09:54 WBC (4.0-10.5) K/mm3 RBC (4.1-5.6) M/mm3 Hgb (12.5-18.0) gm/dl Hct (42-50) % MCV (78-100) fl MCH (26-32) pg MCHC (32-36) g/dl RDW (11.5-14.0) % Plt Count (150-450) K/mm3 MPV (6-9.5) fl Gran % (36.0-66.0) % Eos # (Auto) (0-0.5) Absolute Lymphs (auto) (1.0-4.6) Absolute Monos (auto) (0.0-1.3) Lymphocytes % (24.0-44.0) % Monocytes % (0.0-12.0) % Eosinophils % (0.00-5.0) % Basophils % (0.0-0.4) % Absolute Granulocytes (1.4-6.9) Basophils # (0-0.4) Sodium (137-145) mmol/L Potassium (3.5-5.1) mmol/L Chloride (98-107) mmol/L Carbon Dioxide (22-30) mmol/L Anion Gap (5-15) MEQ/L BUN (9-20) mg/dL Creatinine (0.66-1.25) mg/dL Estimated GFR ML/MIN Glucose (74-106) mg/dL Hemoglobin A1c (4.5-6.0) % Calcium (8.4-10.2) mg/dL Total Bilirubin (0.2-1.3) mg/dL AST (17-59) U/L ALT (0-50) U/L Alkaline Phosphatase (38-126) U/L Creatine Kinase 21504 H (55-170) U/L Serum Total Protein (6.3-8.2) g/dL Albumin (3.5-5.0) g/dL Amylase 99 (30-110) U/L Lipase 22 L (23-300) U/L TSH 3rd Generation 1.150 (0.47-4.68) mIU/L Hepatitis A IgM Ab (Non Reactive) Hep Bs Antigen (Non Reactive) Hep Bs Antibody, Quant (0.00-8.49) mIU/mL Hep B Core Total Ab (Non Reactive) Hepatitis C Antibody (Non Reactive) 05/12/18 05/12/18 05/12/18 Range/Units 09:54 15:59 19:00 WBC (4.0-10.5) K/mm3 RBC (4.1-5.6) M/mm3 Hgb (12.5-18.0) gm/dl Hct (42-50) % MCV (78-100) fl MCH (26-32) pg MCHC (32-36) g/dl RDW (11.5-14.0) % Plt Count (150-450) K/mm3 MPV (6-9.5) fl Gran % (36.0-66.0) % Eos # (Auto) (0-0.5) Absolute Lymphs (auto) (1.0-4.6) Absolute Monos (auto) (0.0-1.3) Lymphocytes % (24.0-44.0) % Monocytes % (0.0-12.0) % Eosinophils % (0.00-5.0) % Basophils % (0.0-0.4) % Absolute Granulocytes (1.4-6.9) Basophils # (0-0.4) Sodium (137-145) mmol/L Potassium (3.5-5.1) mmol/L Chloride (98-107) mmol/L Carbon Dioxide (22-30) mmol/L Anion Gap (5-15) MEQ/L BUN (9-20) mg/dL Creatinine (0.66-1.25) mg/dL Estimated GFR ML/MIN Glucose (74-106) mg/dL Hemoglobin A1c 5.30 (4.5-6.0) % Calcium (8.4-10.2) mg/dL Total Bilirubin (0.2-1.3) mg/dL AST (17-59) U/L ALT (0-50) U/L Alkaline Phosphatase (38-126) U/L Creatine Kinase 03407 H (55-170) U/L Serum Total Protein (6.3-8.2) g/dL Albumin (3.5-5.0) g/dL Amylase (30-110) U/L Lipase (23-300) U/L TSH 3rd Generation (0.47-4.68) mIU/L Hepatitis A IgM Ab Non Reactive (Non Reactive) Hep Bs Antigen Non Reactive (Non Reactive) Hep Bs Antibody, Quant <3.50 (0.00-8.49) mIU/mL Hep B Core Total Ab Non Reactive (Non Reactive) Hepatitis C Antibody Non Reactive (Non Reactive) 05/12/18 05/13/18 05/13/18 Range/Units 19:00 05:15 05:15 WBC 8.8 (4.0-10.5) K/mm3 RBC 3.86 L (4.1-5.6) M/mm3 Hgb 11.2 L (12.5-18.0) gm/dl Hct 33.0 L (42-50) % MCV 85.5 (78-100) fl MCH 29.0 (26-32) pg MCHC 33.9 (32-36) g/dl RDW 13.7 (11.5-14.0) % Plt Count 108 L (150-450) K/mm3 MPV 10.4 H (6-9.5) fl Gran % 83.2 H (36.0-66.0) % Eos # (Auto) 0.01 (0-0.5) Absolute Lymphs (auto) 0.67 L (1.0-4.6) Absolute Monos (auto) 0.79 (0.0-1.3) Lymphocytes % 7.6 L (24.0-44.0) % Monocytes % 9.0 (0.0-12.0) % Eosinophils % 0.1 (0.00-5.0) % Basophils % 0.1 (0.0-0.4) % Absolute Granulocytes 7.30 H (1.4-6.9) Basophils # 0.01 (0-0.4) Sodium 143 144 (137-145) mmol/L Potassium 3.7 3.2 L (3.5-5.1) mmol/L Chloride 114 H 107 (98-107) mmol/L Carbon Dioxide 21 L 32 H (22-30) mmol/L Anion Gap 11.8 8.0 (5-15) MEQ/L BUN 48 H 33 H (9-20) mg/dL Creatinine 1.22 1.05 (0.66-1.25) mg/dL Estimated GFR 59.6 > 60.0 ML/MIN Glucose 115 H 138 H (74-106) mg/dL Hemoglobin A1c (4.5-6.0) % Calcium 8.6 8.4 (8.4-10.2) mg/dL Total Bilirubin 1.20 (0.2-1.3) mg/dL AST 342 H (17-59) U/L ALT 140 H (0-50) U/L Alkaline Phosphatase 44 (38-126) U/L Creatine Kinase (55-170) U/L Serum Total Protein 4.6 L (6.3-8.2) g/dL Albumin 2.6 L (3.5-5.0) g/dL Amylase (30-110) U/L Lipase (23-300) U/L TSH 3rd Generation (0.47-4.68) mIU/L Hepatitis A IgM Ab (Non Reactive) Hep Bs Antigen (Non Reactive) Hep Bs Antibody, Quant (0.00-8.49) mIU/mL Hep B Core Total Ab (Non Reactive) Hepatitis C Antibody (Non Reactive) 05/13/18 Range/Units 05:15 WBC (4.0-10.5) K/mm3 RBC (4.1-5.6) M/mm3 Hgb (12.5-18.0) gm/dl Hct (42-50) % MCV (78-100) fl MCH (26-32) pg MCHC (32-36) g/dl RDW (11.5-14.0) % Plt Count (150-450) K/mm3 MPV (6-9.5) fl Gran % (36.0-66.0) % Eos # (Auto) (0-0.5) Absolute Lymphs (auto) (1.0-4.6) Absolute Monos (auto) (0.0-1.3) Lymphocytes % (24.0-44.0) % Monocytes % (0.0-12.0) % Eosinophils % (0.00-5.0) % Basophils % (0.0-0.4) % Absolute Granulocytes (1.4-6.9) Basophils # (0-0.4) Sodium (137-145) mmol/L Potassium (3.5-5.1) mmol/L Chloride (98-107) mmol/L Carbon Dioxide (22-30) mmol/L Anion Gap (5-15) MEQ/L BUN (9-20) mg/dL Creatinine (0.66-1.25) mg/dL Estimated GFR ML/MIN Glucose (74-106) mg/dL Hemoglobin A1c (4.5-6.0) % Calcium (8.4-10.2) mg/dL Total Bilirubin (0.2-1.3) mg/dL AST (17-59) U/L ALT (0-50) U/L Alkaline Phosphatase (38-126) U/L Creatine Kinase 95278 H (55-170) U/L Serum Total Protein (6.3-8.2) g/dL Albumin (3.5-5.0) g/dL Amylase (30-110) U/L Lipase (23-300) U/L TSH 3rd Generation (0.47-4.68) mIU/L Hepatitis A IgM Ab (Non Reactive) Hep Bs Antigen (Non Reactive) Hep Bs Antibody, Quant (0.00-8.49) mIU/mL Hep B Core Total Ab (Non Reactive) Hepatitis C Antibody (Non Reactive) Radiology Exams: Radiology Procedures Category Date Time Status ECHO W/2D AND DOPPLER [US] Routine Exams 05/12/18 12:00 Draft GALLBLADDER [US] Routine Exams 05/12/18 10:21 Completed Multi-Disciplinary Progress Notes: Multi-Disciplinary Progress Notes 05/12/18 09:29 Case Management Note by Roro Ambriz CALLED [facility] IN [place] [phone] AND S/W TIA, NO SERVICE CONNECTION FOR COVERAGE, USE MEDICARE AND MEDICAID, BUT PLEASE FAX CLINICALS TO [phone] FOR CONTINUITY OF CARE. Initialized on 05/12/18 09:29 - END OF NOTE 05/12/18 09:27 Pharmacy Note by Mehdi Love PHARMACY ZOSYN DOSING FOR ACUTE CHOLECYSTITIS PATIENT IS 88 YEAR OLD MALE WEIGHING 57 KG WITH ESTIMATED CREATININE CLEARANCE OF 25 ML/MIN WILL START HIM ON ZOSYN 3.375G IV Q 8 HRS AND ADJUST TOMORROW IF NEEDED Initialized on 05/12/18 09:27 - END OF NOTE Assessment/Plan (1) Altered mental state Current Visit: Yes Status: Acute Onset Date: ~05/12/18 Qualifiers: Altered mental status type: unspecified Qualified Code(s): R41.82 - Altered mental status, unspecified Assessment & Plan: Much improved from yesterday. Moving all 4 extremities well. Code(s): R41.82 - ALTERED MENTAL STATUS, UNSPECIFIED (2) Rhabdomyolysis Current Visit: Yes Status: Acute Onset Date: ~05/12/18 Qualifiers: Rhabdomyolysis type: non-traumatic Qualified Code(s): M62.82 - Rhabdomyolysis Assessment & Plan: CPK is coming down. Sodium bicarb drip stopped as his serum bicarbonate was above 30 and his kidney test is normal now. Discussed with pharmacist, Sheldon, and will change to D5 1/2 NS with 20 meq of KCl per liter at 150 mL per hour. Will recheck CPK and BMP this after noon. Discussed with family that I would like for him to stay in the hospital until is CPK is <5000 and continuing to go down. Code(s): M62.82 - RHABDOMYOLYSIS (3) UTI (urinary tract infection) Current Visit: Yes Status: Acute Onset Date: ~05/12/18 Qualifiers: Urinary tract infection type: acute cystitis Hematuria presence: without hematuria Qualified Code(s): N30.00 - Acute cystitis without hematuria Assessment & Plan: Continue zosyn Code(s): N39.0 - URINARY TRACT INFECTION, SITE NOT SPECIFIED (4) Acute renal failure Current Visit: Yes Status: Resolved Assessment & Plan: ARF now resolved. (5) Elevated liver function tests Current Visit: Yes Status: Acute Assessment & Plan: These are improving. His right upper quadrant ultrasound did not show any acute abnormalities. Code(s): R94.5 - ABNORMAL RESULTS OF LIVER FUNCTION STUDIES (6) Elevated troponin Current Visit: Yes Status: Acute Assessment & Plan: Dr. Garcia saw him and I appreciate his input. Code(s): R74.8 - ABNORMAL LEVELS OF OTHER SERUM ENZYMES (7) History of coronary artery disease Current Visit: Yes Status: Acute Assessment & Plan: Continue aspirin. Code(s): Z86.79 - PERSONAL HISTORY OF OTHER DISEASES OF THE CIRCULATORY SYSTEM (8) BPH (benign prostatic hyperplasia) Current Visit: Yes Status: Acute Code(s): N40.0 - BENIGN PROSTATIC HYPERPLASIA WITHOUT LOWER URINRY TRACT SYMP
[2018-05-13] MEDS: THERAGRAN MULTIVITAMIN PO SCH (09:29)
[2018-05-13] MEDS: TYLENOL 325 MG PO PRN ×2 (09:29→14:24)
[2018-05-13] MEDS: PROTONIX 40 MG IV IV SCH (09:29)
[2018-05-13] MEDS: BABY ASPIRIN 81 MG CHEW PO SCH (09:29)
[2018-05-13] MEDS: D5W/0.45NS W/ 20mEq KCl 1000 ML 1,000 ML IV SCH ×3 (09:29→23:53)
[2018-05-13 14:27] LABS: ANION GAP 6.8 MEQ/L (5-15); BLOOD UREA NITROGEN 25 mg/dL (9-20); CHLORIDE 105 mmol/L (98-107); Calcium 8.3 mg/dL (8.4-10.2); Carbon Dioxide 33 mmol/L (22-30); Creatinine 1 0.95 mg/dL (0.66-1.25); Glucose 144 mg/dL (74-106); Potassium 3.9 mmol/L (3.5-5.1); SODIUM 141 mmol/L (137-145)
[2018-05-13 15:11] LABS: CK-Creatinine Phosphokinase 11619 U/L (55-170)
[2018-05-14 00:18] LABS: Appearance CLEAR (CLEAR)
[2018-05-14 00:19] LABS: Bilirubin NEGATIVE (NEGATIVE); Blood 250 Ery/ul (0-5); Glucose NEGATIVE (NEGATIVE); Ketones NEGATIVE (NEGATIVE); Leukocyte Esterase NEGATIVE (NEGATIVE); Nitrite NEGATIVE (NEGATIVE); Protein,Urine Dip 30 (Negative); Urobilinogen NORMAL mg/dL (0-1)
[2018-05-14 00:21] LABS: WBC 0-2 /HPF (0-5)
[2018-05-14 00:22] LABS: Bacteria FEW /HPF (NEGATIVE); Epithelial Cells RARE /HPF (FEW)
[2018-05-14 05:52] LABS: Granulocyte Absolute (ANC) 5.44 (1.4-6.9); Hematocrit 30.7 % (42-50); Hemoglobin 10.3 gm/dl (12.5-18.0); Mean Corpuscular Hgb Concent. 33.6 g/dl (32-36); Mean Platelet Volume 10.6 fl (6-9.5); Platelet Count 94 K/mm3 (150-450); Red Blood Count 3.53 M/mm3 (4.1-5.6); Red Cell Distribution Width 13.6 % (11.5-14.0); White Blood Count 6.7 K/mm3 (4.0-10.5)
[2018-05-14 05:57] LABS: Mean Corpuscular Hemoglobin 29.1 pg (26-32)
[2018-05-14 06:16] LABS: ALBUMIN 2.4 g/dL (3.5-5.0); ALKALINE PHOSPHATASE 42 U/L (38-126); ANION GAP 5.7 MEQ/L (5-15); BLOOD UREA NITROGEN 16 mg/dL (9-20); CHLORIDE 106 mmol/L (98-107); Calcium 8.1 mg/dL (8.4-10.2); Carbon Dioxide 30 mmol/L (22-30); Creatinine 1 0.96 mg/dL (0.66-1.25); Glucose 115 mg/dL (74-106); Potassium 3.9 mmol/L (3.5-5.1); SGOT/AST 233 U/L (17-59); SGPT/ALT 137 U/L (0-50); SODIUM 138 mmol/L (137-145); Total Protein 4.4 g/dL (6.3-8.2)
[2018-05-14] MEDS: Zosyn 3.375GM/100 Ml D5W 3.375 GM/100 ML IVPB IV SCH ×3 (06:39→21:33)
[2018-05-14] MEDS: D5W/0.45NS W/ 20mEq KCl 1000 ML 1,000 ML IV SCH ×3 (06:42→22:59)
[2018-05-14] MEDS: TYLENOL 325 MG PO PRN ×2 (06:46→10:42)
[2018-05-14 08:34] LABS: Eosinophil 1 % (0.00-3.0); Lymphocytes 8 % (24-44); Monocyte 8 % (0.0-12.0); Neutrophils 83 % (36.-66.); Total Cells Counted 100
[2018-05-14 08:35] LABS: Platelet Estimate DECREASED (NORMAL)
--- NOTE | 2018-05-14 09:09 | PCM.NOTE ---
Date and Time: 05/14/18904 Subjective Assessment: he is more alert today then yesterday morning. He is still not oriented to current time or place and not sure of recent events he thinks it is 2001 and isn 't sure who the president is. he is communicating well now. He denies chest pain currently. he is very sore with any movement. Objective Exam General Appearance: no apparent distress, alert, thin, other (multiple abrasions on the extremities scalp and left chest) Neurologic Exam: alert, oriented x 3, cooperative, normal mood/affect, nml cerebellar function, sensation nml, No motor deficits Skin Exam: normal color, warm, dry, abrasion Eye Exam: PERRL, EOMI, pale conjunctivae Ears, Nose, Throat Exam: pharynx normal, moist mucous membranes Neck Exam: normal inspection, non-tender, supple, full range of motion Respiratory Exam: normal breath sounds, lungs clear, No respiratory distress Cardiovascular Exam: regular rate/rhythm, normal heart sounds Gastrointestinal/Abdomen Exam: soft, No tenderness, No mass Extremity Exam: normal inspection, normal range of motion, other, No pedal edema Back Exam: normal inspection, normal range of motion, No CVA tenderness, No vertebral tenderness Male Genitalia Exam: deferred, other (reyes with clear yellow urine) Rectal Exam: deferred OBJECTIVE DATA Vital Signs: Vital Signs - 24 hr Temp Pulse Resp BP Pulse Ox 05/14/18 07:28 98.0 F 57 L 18 119/62 94 L 05/14/18 04:00 98.9 F 85 17 128/58 93 L 05/13/18 23:53 98.9 F 54 L 18 122/62 94 L 05/13/18 20:00 98.7 F 72 18 164/93 98 05/13/18 16:14 98.3 F 86 20 124/58 96 05/13/18 12:32 98 F 80 20 128/63 95 Pain Assessment - Last Documented Pain Intensity 0 Pain Scale Used [facility] Intake and Output: Intake & Output 05/11/18 05/12/18 05/13/18 05/14/18 11:59 11:59 11:59 11:59 Intake Total 312 2833 4490 Output Total 1600 2050 Balance 312 1233 2440 Weight 57.1 kg 57.1 kg Lab Results: Lab Results-Last 24 Hours 05/13/18 05/13/18 05/14/18 Range/Units 13:58 23:48 05:44 WBC (4.0-10.5) K/mm3 RBC (4.1-5.6) M/mm3 Hgb (12.5-18.0) gm/dl Hct (42-50) % MCV (78-100) fl MCH (26-32) pg MCHC (32-36) g/dl RDW (11.5-14.0) % Plt Count (150-450) K/mm3 MPV (6-9.5) fl Absolute Granulocytes (1.4-6.9) Segmented Neutrophils (36.-66.) % Lymphocytes (Manual) (24-44) % Monocytes (Manual) (0.0-12.0) % Eosinophils (Manual) (0.00-3.0) % Platelet Estimate (NORMAL) RBC Morphology Sodium 141 138 (137-145) mmol/L Potassium 3.9 3.9 (3.5-5.1) mmol/L Chloride 105 106 (98-107) mmol/L Carbon Dioxide 33 H 30 (22-30) mmol/L Anion Gap 6.8 5.7 (5-15) MEQ/L BUN 25 H 16 (9-20) mg/dL Creatinine 0.95 0.96 (0.66-1.25) mg/dL Estimated GFR > 60.0 > 60.0 ML/MIN Glucose 144 H 115 H (74-106) mg/dL Calcium 8.3 L 8.1 L (8.4-10.2) mg/dL Total Bilirubin 1.40 H (0.2-1.3) mg/dL AST 233 H (17-59) U/L ALT 137 H (0-50) U/L Alkaline Phosphatase 42 (38-126) U/L Creatine Kinase 72983 H (55-170) U/L Serum Total Protein 4.4 L (6.3-8.2) g/dL Albumin 2.4 L (3.5-5.0) g/dL Ur Collection Type VOID Urine Color DARK YELLOW (YELLOW) Urine Appearance CLEAR (CLEAR) Urine pH 9.0 (5-6) Ur Specific [place] 1.000 (1.005-1.025) Urine Protein 30 (Negative) Urine Ketones NEGATIVE (NEGATIVE) Urine Blood 250 (0-5) Angelo/ul Urine Nitrite NEGATIVE (NEGATIVE) Urine Bilirubin NEGATIVE (NEGATIVE) Urine Urobilinogen NORMAL (0-1) mg/dL Ur Leukocyte Esterase NEGATIVE (NEGATIVE) Urine Microscopic RBC 10-15 (0-2) /HPF Urine Microscopic WBC 0-2 (0-5) /HPF Ur Epithelial Cells RARE (FEW) /HPF Urine Bacteria FEW (NEGATIVE) /HPF Urine Glucose NEGATIVE (NEGATIVE) mg/dL Specimen Received 05/13 234505/14/18 Range/Units 05:44 WBC 6.7 (4.0-10.5) K/mm3 RBC 3.53 L (4.1-5.6) M/mm3 Hgb 10.3 L (12.5-18.0) gm/dl Hct 30.7 L (42-50) % MCV 87.0 (78-100) fl MCH 29.1 (26-32) pg MCHC 33.6 (32-36) g/dl RDW 13.6 (11.5-14.0) % Plt Count 94 L (150-450) K/mm3 MPV 10.6 H (6-9.5) fl Absolute Granulocytes 5.44 (1.4-6.9) Segmented Neutrophils 83 H (36.-66.) % Lymphocytes (Manual) 8 L (24-44) % Monocytes (Manual) 8 (0.0-12.0) % Eosinophils (Manual) 1 (0.00-3.0) % Platelet Estimate DECREASED (NORMAL) RBC Morphology NORMAL Sodium (137-145) mmol/L Potassium (3.5-5.1) mmol/L Chloride (98-107) mmol/L Carbon Dioxide (22-30) mmol/L Anion Gap (5-15) MEQ/L BUN (9-20) mg/dL Creatinine (0.66-1.25) mg/dL Estimated GFR ML/MIN Glucose (74-106) mg/dL Calcium (8.4-10.2) mg/dL Total Bilirubin (0.2-1.3) mg/dL AST (17-59) U/L ALT (0-50) U/L Alkaline Phosphatase (38-126) U/L Creatine Kinase (55-170) U/L Serum Total Protein (6.3-8.2) g/dL Albumin (3.5-5.0) g/dL Ur Collection Type Urine Color (YELLOW) Urine Appearance (CLEAR) Urine pH (5-6) Ur Specific [place] (1.005-1.025) Urine Protein (Negative) Urine Ketones (NEGATIVE) Urine Blood (0-5) Angelo/ul Urine Nitrite (NEGATIVE) Urine Bilirubin (NEGATIVE) Urine Urobilinogen (0-1) mg/dL Ur Leukocyte Esterase (NEGATIVE) Urine Microscopic RBC (0-2) /HPF Urine Microscopic WBC (0-5) /HPF Ur Epithelial Cells (FEW) /HPF Urine Bacteria (NEGATIVE) /HPF Urine Glucose (NEGATIVE) mg/dL Specimen Received Radiology Exams: Radiology Procedures Category Date Time Status ECHO W/2D AND DOPPLER [US] Routine Exams 05/12/18 12:00 Draft GALLBLADDER [US] Routine Exams 05/12/18 10:21 Completed Multi-Disciplinary Progress Notes: Multi-Disciplinary Progress Notes 05/13/18 16:04 Physical Therapy Note by Lorin Lino PATIENT ASSESSED IN PROCESS OF ROUTINE CARE - HELPED NURSING STAFF WITH FUNCTIONAL TRANSFERS AND SHORT DISTANCE GAIT WITH A ROLLER WALKER AND ASSIST + 2. PATIENT NOT READY FOR SKILLED THERAPY INTERVENTION AT THIS TIME. ADVISED NURSING TO HAVE PATIENT UP FOR TOILETING AND MEALS OVER THE WEEKEND TO PREP FOR INCREASED ACTIVITY. DISCUSSED THE BENEFITS OF SWING BED STAY WITH FAMILY TO ALLOW THERAPY INTERVENTION AT A HIGHER INTENSITY EARLY IN RECOVERY. EXPECT TO INITIATE THERAPY UPON SWING BED TRANSFER. Initialized on 05/13/18 16:04 - END OF NOTE 05/13/18 09:50 (created 05/13/18 12:26) Case Management Note by India Dee SPOKE WITH DEVAN, PT'S DAUGHTER, VIA TELEPHONE. REPORTS THAT SHE WILL BE IN THIS AFTERNOON TO SIGN PAPERWORK AND DISCUSS DISCHARGE PLANS. DISCUSSED THAT HER BROTHER HAD MENTIONED YESTERDAY THAT PT MAY GO TO HIS HOME ON DISCHARGE UNTIL HE IS STRONG ENOUGH TO RETURN HOME. DID DISCUSS REHAB STAY @ [facility] VS SWING BED. ALSO, DISCUSSED THAT GIVEN THE SEVERITY OF HIS WEAKNESS HE COULD BENEFIT FROM PHYSICAL THERAPY IN REHAB SETTING, EITHER [facility] OR SWING. DEVAN REPORTS THAT SHE WILL DISCUSS WITH FAMILY. Initialized on 05/13/18 12:26 - END OF NOTE Assessment/Plan (1) Rhabdomyolysis Current Visit: Yes Status: Acute Onset Date: ~05/12/18 Qualifiers: Rhabdomyolysis type: non-traumatic Qualified Code(s): M62.82 - Rhabdomyolysis Assessment & Plan: improving Ck not back from this am yet will await if <5000 will decrease fluids continue encourage po will d/c reyes today urine cultuer with 20-30 k enterococcus but he is much improved currently on the zosyn will add macrobid as is sensitive to this as he does not have acute pyelonephritis now Code(s): M62.82 - RHABDOMYOLYSIS (2) Acute kidney injury Current Visit: Yes Status: Acute Code(s): N17.9 - ACUTE KIDNEY FAILURE, UNSPECIFIED (3) UTI (urinary tract infection) Current Visit: Yes Status: Acute Onset Date: ~05/12/18 Qualifiers: Urinary tract infection type: acute cystitis Hematuria presence: without hematuria Qualified Code(s): N30.00 - Acute cystitis without hematuria Code(s): N39.0 - URINARY TRACT INFECTION, SITE NOT SPECIFIED (4) Acute metabolic encephalopathy Current Visit: Yes Status: Acute Assessment & Plan: increase activity as tolerated start working on plan for rehabilitation for strengthening Code(s): G93.41 - METABOLIC ENCEPHALOPATHY (5) Elevated liver function tests Current Visit: Yes Status: Acute Code(s): R94.5 - ABNORMAL RESULTS OF LIVER FUNCTION STUDIES (6) Elevated troponin Current Visit: Yes Status: Acute Code(s): R74.8 - ABNORMAL LEVELS OF OTHER SERUM ENZYMES (7) History of coronary artery disease Current Visit: Yes Status: Chronic Assessment & Plan: with lvef 40% on echo no chest pain currently continue aspirin Dr. Garcia following Code(s): Z86.79 - PERSONAL HISTORY OF OTHER DISEASES OF THE CIRCULATORY SYSTEM (8) BPH (benign prostatic hyperplasia) Current Visit: Yes Status: Acute Code(s): N40.0 - BENIGN PROSTATIC HYPERPLASIA WITHOUT LOWER URINRY TRACT SYMP
[2018-05-14] MEDS: THERAGRAN MULTIVITAMIN PO SCH (10:42)
[2018-05-14] MEDS: PROTONIX 40 MG IV IV SCH (10:42)
[2018-05-14] MEDS: Macrobid 100MG Capsule PO SCH ×2 (10:42→16:56)
[2018-05-14] MEDS: BABY ASPIRIN 81 MG CHEW PO SCH (10:42)
[2018-05-15] MEDS: D5W/0.45NS W/ 20mEq KCl 1000 ML 1,000 ML IV SCH ×2 (05:34→16:04)
[2018-05-15] MEDS: Zosyn 3.375GM/100 Ml D5W 3.375 GM/100 ML IVPB IV SCH ×3 (06:01→22:19)
[2018-05-15 06:04] LABS: BASOPHIL % 0.3 % (0.0-0.4); Basophil (Absolute #) 0.02 (0-0.4); Eosinophil % 4.4 % (0.00-5.0); Eosinophil (Absolute #) 0.33 (0-0.5); Granulocyte Absolute (ANC) 5.47 (1.4-6.9); Granulocytes % 73.7 % (36.0-66.0); Hematocrit 33.4 % (42-50); Lymphocyte (Absolute #) 0.65 (1.0-4.6); Lymphocytes % 8.7 % (24.0-44.0); Mean Cell Volume 87.9 fl (78-100); Mean Corpuscular Hemoglobin 28.9 pg (26-32); Mean Corpuscular Hgb Concent. 32.9 g/dl (32-36); Mean Platelet Volume 10.8 fl (6-9.5); Monocyte (Absolute #) 0.96 (0.0-1.3); Monocytes % 12.9 % (0.0-12.0); Platelet Count 107 K/mm3 (150-450); White Blood Count 7.4 K/mm3 (4.0-10.5)
[2018-05-15 06:36] LABS: ALBUMIN 2.5 g/dL (3.5-5.0); ALKALINE PHOSPHATASE 51 U/L (38-126); ANION GAP 6.3 MEQ/L (5-15); BLOOD UREA NITROGEN 12 mg/dL (9-20); CHLORIDE 110 mmol/L (98-107); Calcium 8.4 mg/dL (8.4-10.2); Carbon Dioxide 26 mmol/L (22-30); Creatinine 1 0.88 mg/dL (0.66-1.25); Glucose 114 mg/dL (74-106); Potassium 4.3 mmol/L (3.5-5.1); SGOT/AST 150 U/L (17-59); SGPT/ALT 122 U/L (0-50); SODIUM 138 mmol/L (137-145); Total Protein 4.5 g/dL (6.3-8.2)
[2018-05-15] MEDS: THERAGRAN MULTIVITAMIN PO SCH (08:01)
[2018-05-15] MEDS: PROTONIX 40 MG IV IV SCH (08:01)
[2018-05-15] MEDS: Macrobid 100MG Capsule PO SCH ×2 (08:01→16:04)
[2018-05-15] MEDS: TYLENOL 325 MG PO PRN (08:01)
[2018-05-15] MEDS: BABY ASPIRIN 81 MG CHEW PO SCH (08:03)
--- NOTE | 2018-05-15 15:59 | PCM.NOTE ---
Date and Time: 05/15/18 1555 Subjective Assessment: improving still with some confusion not oriented to date and still impulsive at time but communicating much better. His family feels he is doing much better and nurses he is communicating better with but I wake him up from a nap today and ask him if he knows why he is here he is not sure and not able to describe recent events or time. He does know he is in the hospital. He has no incontinence today and is seeking assistance appropriately now Objective Exam General Appearance: no apparent distress, alert Neurologic Exam: alert, cooperative, normal mood/affect, nml cerebellar function , sensation nml, other (oriented to person and place not time), No motor deficits Skin Exam: normal color, warm, dry, other (multiple abraisions no evidence of ongoing infection) Eye Exam: PERRL, EOMI, eyes nml inspection Ears, Nose, Throat Exam: normal ENT inspection, pharynx normal, moist mucous membranes Neck Exam: normal inspection, non-tender, supple, full range of motion Respiratory Exam: normal breath sounds, lungs clear, No respiratory distress Cardiovascular Exam: regular rate/rhythm, normal heart sounds Gastrointestinal/Abdomen Exam: soft, No tenderness, No mass Extremity Exam: normal inspection, normal range of motion Back Exam: normal inspection, normal range of motion, No CVA tenderness, No vertebral tenderness Male Genitalia Exam: deferred Rectal Exam: deferred OBJECTIVE DATA Vital Signs: Vital Signs - 24 hr Temp Pulse Resp BP Pulse Ox 05/15/18 11:30 98.0 F 70 16 129/61 97 05/15/18 07:17 97.6 F 83 18 173/70 94 L 05/15/18 03:47 98.1 F 74 18 160/70 97 05/15/18 00:00 98.4 F 57 L 15 137/72 95 05/14/18 20:00 98.9 F 76 17 136/64 96 05/14/18 16:00 97.9 F 95 H 18 116/70 95 Pain Assessment - Last Documented Pain Intensity 0 Pain Scale Used [facility] Intake and Output: Intake & Output 05/13/18 05/14/18 05/15/18 05/16/18 11:59 11:59 11:59 11:59 Intake Total 2833 4610 4076 Output Total 1600 2400 700 Balance 1233 2210 3376 Weight 57.1 kg Lab Results: Lab Results-Last 24 Hours 05/15/18 05/15/18 05/15/18 Range/Units 05:10 05:10 05:10 WBC 7.4 (4.0-10.5) K/mm3 RBC 3.80 L (4.1-5.6) M/mm3 Hgb 11.0 L (12.5-18.0) gm/dl Hct 33.4 L (42-50) % MCV 87.9 (78-100) fl MCH 28.9 (26-32) pg MCHC 32.9 (32-36) g/dl RDW 14.0 (11.5-14.0) % Plt Count 107 L (150-450) K/mm3 MPV 10.8 H (6-9.5) fl Gran % 73.7 H (36.0-66.0) % Eos # (Auto) 0.33 (0-0.5) Absolute Lymphs (auto) 0.65 L (1.0-4.6) Absolute Monos (auto) 0.96 (0.0-1.3) Lymphocytes % 8.7 L (24.0-44.0) % Monocytes % 12.9 H (0.0-12.0) % Eosinophils % 4.4 (0.00-5.0) % Basophils % 0.3 (0.0-0.4) % Absolute Granulocytes 5.47 (1.4-6.9) Basophils # 0.02 (0-0.4) Sodium 138 (137-145) mmol/L Potassium 4.3 (3.5-5.1) mmol/L Chloride 110 H (98-107) mmol/L Carbon Dioxide 26 (22-30) mmol/L Anion Gap 6.3 (5-15) MEQ/L BUN 12 (9-20) mg/dL Creatinine 0.88 (0.66-1.25) mg/dL Estimated GFR > 60.0 ML/MIN Glucose 114 H (74-106) mg/dL Calcium 8.4 (8.4-10.2) mg/dL Total Bilirubin 0.80 (0.2-1.3) mg/dL AST 150 H (17-59) U/L ALT 122 H (0-50) U/L Alkaline Phosphatase 51 (38-126) U/L Creatine Kinase 2706 H (55-170) U/L Serum Total Protein 4.5 L (6.3-8.2) g/dL Albumin 2.5 L (3.5-5.0) g/dL Assessment/Plan (1) Rhabdomyolysis Current Visit: Yes Status: Acute Onset Date: ~05/12/18 Qualifiers: Rhabdomyolysis type: non-traumatic Qualified Code(s): M62.82 - Rhabdomyolysis Assessment & Plan: much improved with his continued altered mental status intermittently will continue the gentle iv fluids at 75 mL/h for 1 more day if tolerating without edema. probably transition to swing bed rehab tomorrow if continues to improve and do well for further rehab therapy Code(s): M62.82 - RHABDOMYOLYSIS (2) Acute kidney injury Current Visit: Yes Status: Resolved Code(s): N17.9 - ACUTE KIDNEY FAILURE, UNSPECIFIED (3) UTI (urinary tract infection) Current Visit: Yes Status: Acute Onset Date: ~05/12/18 Qualifiers: Urinary tract infection type: acute cystitis Hematuria presence: without hematuria Qualified Code(s): N30.00 - Acute cystitis without hematuria Assessment & Plan: no evidence of current pyelonephritis continue macrobid for the enterococcus Code(s): N39.0 - URINARY TRACT INFECTION, SITE NOT SPECIFIED (4) Acute metabolic encephalopathy Current Visit: Yes Status: Acute Code(s): G93.41 - METABOLIC ENCEPHALOPATHY (5) Elevated liver function tests Current Visit: Yes Status: Acute Assessment & Plan: improving Code(s): R94.5 - ABNORMAL RESULTS OF LIVER FUNCTION STUDIES (6) Elevated troponin Current Visit: Yes Status: Acute Assessment & Plan: lvef was 40% followed by Dr. Garcia now monitor fluid status Code(s): R74.8 - ABNORMAL LEVELS OF OTHER SERUM ENZYMES (7) History of coronary artery disease Current Visit: Yes Status: Chronic Code(s): Z86.79 - PERSONAL HISTORY OF OTHER DISEASES OF THE CIRCULATORY SYSTEM (8) BPH (benign prostatic hyperplasia) Current Visit: Yes Status: Acute Code(s): N40.0 - BENIGN PROSTATIC HYPERPLASIA WITHOUT LOWER URINRY TRACT SYMP
[2018-05-16] MEDS: D5W/0.45NS W/ 20mEq KCl 1000 ML 1,000 ML IV SCH (05:23)
[2018-05-16] MEDS: Zosyn 3.375GM/100 Ml D5W 3.375 GM/100 ML IVPB IV SCH (05:44)
[2018-05-16 05:47] LABS: BASOPHIL % 0.3 % (0.0-0.4); Basophil (Absolute #) 0.02 (0-0.4); Eosinophil % 4.7 % (0.00-5.0); Eosinophil (Absolute #) 0.35 (0-0.5); Granulocyte Absolute (ANC) 5.32 (1.4-6.9); Hematocrit 31.6 % (42-50); Hemoglobin 10.7 gm/dl (12.5-18.0); Lymphocyte (Absolute #) 0.67 (1.0-4.6); Lymphocytes % 8.9 % (24.0-44.0); Mean Cell Volume 87.5 fl (78-100); Mean Corpuscular Hemoglobin 29.6 pg (26-32); Mean Corpuscular Hgb Concent. 33.9 g/dl (32-36); Mean Platelet Volume 10.4 fl (6-9.5); Monocyte (Absolute #) 1.13 (0.0-1.3); Monocytes % 15.1 % (0.0-12.0); Platelet Count 127 K/mm3 (150-450); Red Blood Count 3.61 M/mm3 (4.1-5.6); Red Cell Distribution Width 13.8 % (11.5-14.0); White Blood Count 7.5 K/mm3 (4.0-10.5)
[2018-05-16 06:07] LABS: ALBUMIN 2.4 g/dL (3.5-5.0); ALKALINE PHOSPHATASE 54 U/L (38-126); ANION GAP 6.5 MEQ/L (5-15); BLOOD UREA NITROGEN 7 mg/dL (9-20); CHLORIDE 108 mmol/L (98-107); Calcium 8.7 mg/dL (8.4-10.2); Carbon Dioxide 26 mmol/L (22-30); Creatinine 1 0.91 mg/dL (0.66-1.25); Glucose 105 mg/dL (74-106); Potassium 4.1 mmol/L (3.5-5.1); SGOT/AST 87 U/L (17-59); SGPT/ALT 101 U/L (0-50); SODIUM 137 mmol/L (137-145); Total Protein 4.5 g/dL (6.3-8.2)
[2018-05-16] MEDS: Macrobid 100MG Capsule PO SCH (08:03)
[2018-05-16] MEDS: TYLENOL 325 MG PO PRN (08:03)
[2018-05-16] MEDS ORDERED: Dextrose 5% -0.45 NaCl 1000 ML 1,000 ML IV SCH (08:45)
[2018-05-16] MEDS: BABY ASPIRIN 81 MG CHEW PO SCH (10:54)
[2018-05-16] MEDS: THERAGRAN MULTIVITAMIN PO SCH (10:54)
[2018-05-16 15:49] LABS: CK-BB 0 % (0-0); CK-MB 0 % (0-4); CK-MM 100 % (96-100); Macro Type 1 0 % (0-0)
[2018-05-17 03:18] LABS: Creatine Kinase,Total 16290 U/L (20-200); Macro Type 2 0 % (0-0)
[2018-05-17 07:33] VITALS: BP 132/85; PULSE 76; O2SAT 95
== END 2018-05-16 17:00 | disposition swing bed (61) | DRG 557 ==
LOC: ED 18:51 → MED SURG 05-12 02:04
PROVIDERS: ADMIT Internal Medicine; ATTEND Internal Medicine
DX: M62.82 Rhabdomyolysis (principal); G93.41 Metabolic encephalopathy; N17.9 Acute kidney failure, unspecified; N39.0 Urinary tract infection, site not specified; R94.5 Abnormal results of liver function studies; R74.8 Abnormal levels of other serum enzymes; N40.0 Benign prostatic hyperplasia without lower urinary tract symptoms; N30.00 Acute cystitis without hematuria; R41.82 Altered mental status, unspecified; I25.2 Old myocardial infarction; Z87.891 Personal history of nicotine dependence; R53.1 Weakness
CPT/HCPCS: 36000; 36415; 51702; 70450; 71250; 72125; 72131; 74176; 76705; 80048; 80053; 80074; 80307; 81000; 82150; 82550; 82552; 83036; 83690; 84443; 84484; 85025; 85610; 85730; 86850; 86900; 86901; 87077; 87086; 87186; 93005; 93306; 96360; 96361; 96365; 96374; 97161; 99285; P9612; 81002; J0696; J1630; J2543; J3486; A9270-GY; G0480

== ENCOUNTER 2018-05-16 15:00 | Inpatient (IN) | payer MEDICARE ==
[2018-05-16] MEDS ORDERED: TYLENOL 325 MG PO PRN (15:30)
[2018-05-16] MEDS ORDERED: Dextrose 5% -0.45 NaCl 1000 ML 1,000 ML IV SCH (15:30)
[2018-05-17] MEDS ORDERED: Aplisol ID SCH (10:00)
[2018-05-17] MEDS: THERAGRAN MULTIVITAMIN PO SCH (10:11)
[2018-05-17] MEDS: BABY ASPIRIN 81 MG CHEW PO SCH (10:11)
[2018-05-17] MEDS: Macrobid 100MG Capsule PO SCH ×2 (10:11→17:10)
[2018-05-17 11:06] LABS: ANION GAP 8.1 MEQ/L (5-15); BLOOD UREA NITROGEN 7 mg/dL (9-20); CHLORIDE 106 mmol/L (98-107); Calcium 9.1 mg/dL (8.4-10.2); Carbon Dioxide 28 mmol/L (22-30); Creatinine 1 0.86 mg/dL (0.66-1.25); Glucose 92 mg/dL (74-106); SODIUM 138 mmol/L (137-145)
[2018-05-17] MEDS: Sodium Chloride 0.9% 10 ML FLUSH Syringe IV SCH (22:25)
[2018-05-18 06:00] LABS: ANION GAP 6.6 MEQ/L (5-15); BLOOD UREA NITROGEN 8 mg/dL (9-20); CHLORIDE 106 mmol/L (98-107); Carbon Dioxide 27 mmol/L (22-30); Creatinine 1 0.77 mg/dL (0.66-1.25); Glucose 93 mg/dL (74-106); Potassium 3.9 mmol/L (3.5-5.1); SODIUM 136 mmol/L (137-145)
[2018-05-18] MEDS: THERAGRAN MULTIVITAMIN PO SCH (08:58)
[2018-05-18] MEDS: Sodium Chloride 0.9% 10 ML FLUSH Syringe IV SCH ×3 (08:58→21:17)
[2018-05-18] MEDS: BABY ASPIRIN 81 MG CHEW PO SCH (08:58)
[2018-05-18] MEDS: Zestril 5 MG PO SCH (09:54)
[2018-05-18] MEDS: Macrobid 100MG Capsule PO SCH ×3 (09:55→18:21)
[2018-05-19] MEDS: Sodium Chloride 0.9% 10 ML FLUSH Syringe IV SCH ×3 (06:55→22:59)
[2018-05-19] MEDS: Macrobid 100MG Capsule PO SCH ×2 (10:32→16:30)
[2018-05-19] MEDS: THERAGRAN MULTIVITAMIN PO SCH (10:32)
[2018-05-19] MEDS: Zestril 5 MG PO SCH (10:32)
[2018-05-19] MEDS: BABY ASPIRIN 81 MG CHEW PO SCH (10:32)
[2018-05-20] MEDS: Sodium Chloride 0.9% 10 ML FLUSH Syringe IV SCH ×3 (06:52→22:12)
--- NOTE | 2018-05-20 08:56 | PCM.NOTE ---
Date and Time: 05/20/18 0853 Subjective Assessment: Patient reports that he doesn't know why the good Lord doesn't just take him and get him out of everyone's way. He denies any pain. No concerns. He has finished his whole breakfast. - Review of Systems Constitutional: No Symptoms Eyes: No Symptoms Ears, Nose, & Throat: No Symptoms Respiratory: No Symptoms Cardiac: No Symptoms Abdominal/Gastrointestinal: No Symptoms Genitourinary Symptoms: No Symptoms Musculoskeletal: No Symptoms Skin: No Symptoms Neurological: No Symptoms Objective Exam General Appearance: no apparent distress, alert Neurologic Exam: alert, cooperative, depressed mood/affect Skin Exam: normal color, warm, dry, other (abrasion on right arm healing well, no tenderness of forearms bilat) Cardiovascular Exam: regular rate/rhythm, normal heart sounds, No murmur, No friction rub, No gallop Extremity Exam: normal inspection, other (no c/c/e) OBJECTIVE DATA Vital Signs: Vital Signs - 24 hr Temp Pulse Resp BP Pulse Ox 05/19/18 20:34 98.8 F 77 16 135/63 93 L Pain Assessment - Last Documented Pain Intensity 0 Pain Scale Used 0-10 Pain Scale Intake and Output: Intake & Output 05/18/18 05/19/18 05/20/18 05/21/18 06:59 06:59 06:59 06:59 Intake Total 760 840 960 Output Total 369 362 5179 Balance 460 240 -515 Multi-Disciplinary Progress Notes: Multi-Disciplinary Progress Notes 05/19/18 09:35 (created 05/19/18 13:34) Case Management Note by India Dee POSITIVE FAMILY SUPPORT SYSTEM, VISIT DAILY. NO CHANGE IN DISCHARGE PLAN AT PRESENT. Initialized on 05/19/18 13:34 - END OF NOTE Assessment/Plan (1) Gait instability Current Visit: Yes Status: Acute Assessment & Plan: Continue with PT. Code(s): R26.81 - UNSTEADINESS ON FEET (2) Fall Current Visit: Yes Status: Acute Code(s): W19.XXXA - UNSPECIFIED FALL, INITIAL ENCOUNTER (3) Mood change Current Visit: Yes Status: Acute Assessment & Plan: Will have swing bed staff try to do some activities with him today. Code(s): R45.86 - EMOTIONAL LABILITY (4) Aortic valve sclerosis Current Visit: Yes Status: Acute Assessment & Plan: Management per Dr. Garcia. Code(s): I35.8 - OTHER NONRHEUMATIC AORTIC VALVE DISORDERS (5) Aortic valve regurgitation Current Visit: Yes Status: Acute Assessment & Plan: Management per Dr. Garcia. Code(s): I35.1 - NONRHEUMATIC AORTIC (VALVE) INSUFFICIENCY (6) UTI (urinary tract infection) Current Visit: No Status: Acute Onset Date: ~05/12/18 Qualifiers: Urinary tract infection type: acute cystitis Hematuria presence: without hematuria Qualified Code(s): N30.00 - Acute cystitis without hematuria Assessment & Plan: Continue macrobid. Code(s): N39.0 - URINARY TRACT INFECTION, SITE NOT SPECIFIED (7) Rhabdomyolysis Current Visit: No Status: Acute Onset Date: ~05/12/18 Qualifiers: Rhabdomyolysis type: non-traumatic Qualified Code(s): M62.82 - Rhabdomyolysis Assessment & Plan: Will recheck labs on Wednesday. CPK is much improved when last checked. Patient' s oral intake is good. Code(s): M62.82 - RHABDOMYOLYSIS
[2018-05-20] MEDS: THERAGRAN MULTIVITAMIN PO SCH (09:05)
[2018-05-20] MEDS: Zestril 5 MG PO SCH (09:05)
[2018-05-20] MEDS: Macrobid 100MG Capsule PO SCH (09:06)
[2018-05-20] MEDS: BABY ASPIRIN 81 MG CHEW PO SCH (09:06)
[2018-05-21] MEDS: Sodium Chloride 0.9% 10 ML FLUSH Syringe IV SCH (05:43)
[2018-05-21] MEDS: ECOTRIN 81 MG PO SCH (09:46)
[2018-05-21] MEDS: THERAGRAN MULTIVITAMIN PO SCH (09:46)
[2018-05-21] MEDS: Zestril 5 MG PO SCH (09:46)
[2018-05-22] MEDS: Zestril 5 MG PO SCH (09:24)
[2018-05-22] MEDS: ECOTRIN 81 MG PO SCH (09:24)
[2018-05-22] MEDS: THERAGRAN MULTIVITAMIN PO SCH (09:24)
[2018-05-23 06:05] LABS: ANION GAP 8.3 MEQ/L (5-15); BLOOD UREA NITROGEN 18 mg/dL (9-20); CHLORIDE 105 mmol/L (98-107); CK-Creatinine Phosphokinase 54 U/L (55-170); Carbon Dioxide 28 mmol/L (22-30); Creatinine 1 0.91 mg/dL (0.66-1.25); Glucose 104 mg/dL (74-106); SODIUM 137 mmol/L (137-145)
--- NOTE | 2018-05-23 08:32 | PCM.NOTE ---
Date and Time: 05/23/18826 Subjective Assessment: Patient denies any pain. tool planner reports he his having trouble going from lying to standing or sitting to standing and is still needing assistance to do these things. Aneesh, liaison planner, also reports he needs cues to do things. His nurse reports he didn't eat much breakfast and talked about throwing his tray across the room, but they were able to retrieve it before this happened. - Review of Systems Constitutional: No Symptoms Eyes: No Symptoms Ears, Nose, & Throat: No Symptoms Respiratory: No Symptoms Cardiac: No Symptoms Abdominal/Gastrointestinal: No Symptoms Genitourinary Symptoms: No Symptoms Musculoskeletal: No Symptoms Skin: No Symptoms Objective Exam General Appearance: no apparent distress, thin Neurologic Exam: alert, cooperative, other (oriented to person, says year is 2011 and that he is in [facility]) Skin Exam: normal color, warm, dry, other (large scab on lower left chest) Respiratory Exam: normal breath sounds, lungs clear, No crackles/rales, No rhonchi, No wheezing Cardiovascular Exam: regular rate/rhythm, normal heart sounds, No murmur, No friction rub, No gallop Gastrointestinal/Abdomen Exam: soft, normal bowel sounds, No tenderness, No distention, No mass, No guarding Extremity Exam: other (no c/c/e) OBJECTIVE DATA Vital Signs: Vital Signs - 24 hr Temp Pulse Resp BP Pulse Ox 05/23/18 07:34 98.7 F 68 18 145/67 91 L 05/22/18 20:07 97.8 F 67 18 152/65 97 Pain Assessment - Last Documented Pain Intensity 0 Pain Scale Used [facility] Intake and Output: Intake & Output 05/21/18 05/22/18 05/23/18 05/24/18 06:59 06:59 06:59 06:59 Intake Total 820 920 900 Output Total 775 1175 1200 200 Balance 45 -255 -300 -200 Weight 57.1 kg Lab Results: Lab Results-Last 24 Hours 05/23/18 Range/Units 05:35 Sodium 137 (137-145) mmol/L Potassium 4.0 (3.5-5.1) mmol/L Chloride 105 (98-107) mmol/L Carbon Dioxide 28 (22-30) mmol/L Anion Gap 8.3 (5-15) MEQ/L BUN 18 (9-20) mg/dL Creatinine 0.91 (0.66-1.25) mg/dL Estimated GFR > 60.0 ML/MIN Glucose 104 (74-106) mg/dL Calcium 9.0 (8.4-10.2) mg/dL Creatine Kinase 54 L (55-170) U/L Multi-Disciplinary Progress Notes: Multi-Disciplinary Progress Notes 05/22/18 10:10 (created 05/22/18 13:07) Case Management Note by India Dee FAMILY HERE TO VISIT. DENIES ADDNL NEEDS AT PRESENT. PARTICIPATES IN PHYSICAL THERAPY. SHOWING IMPROVEMENT IN STRENGTH. SAFETY AWARENESS IS AN ISSUE FOR PT HE IS STILL HAVING PERIODS OF CONFUSION. Initialized on 05/22/18 13:07 - END OF NOTE Assessment/Plan (1) Gait instability Current Visit: Yes Status: Acute Assessment & Plan: Continue with therapy. Continue fall precautions. Code(s): R26.81 - UNSTEADINESS ON FEET (2) Fall Current Visit: Yes Status: Acute Code(s): W19.XXXA - UNSPECIFIED FALL, INITIAL ENCOUNTER (3) Aortic valve sclerosis Current Visit: Yes Status: Acute Assessment & Plan: Dr. Garcia saw him while he was here in the hospital. To follow up with Dr. Garcia or the [facility]. Code(s): I35.8 - OTHER NONRHEUMATIC AORTIC VALVE DISORDERS (4) Aortic valve regurgitation Current Visit: Yes Status: Acute Code(s): I35.1 - NONRHEUMATIC AORTIC (VALVE ) INSUFFICIENCY (5) UTI (urinary tract infection) Current Visit: No Status: Resolved Onset Date: ~05/12/18 Qualifiers: Urinary tract infection type: acute cystitis Hematuria presence: without hematuria Qualified Code(s): N30.00 - Acute cystitis without hematuria Assessment & Plan: Treatment with antibiotic completed. Code(s): N39.0 - URINARY TRACT INFECTION, SITE NOT SPECIFIED (6) Rhabdomyolysis Current Visit: No Status: Resolved Onset Date: ~05/12/18 Qualifiers: Rhabdomyolysis type: non-traumatic Qualified Code(s): M62.82 - Rhabdomyolysis Assessment & Plan: Resolved, CPK below lower limit of normal now. Code(s): M62.82 - RHABDOMYOLYSIS (7) Delirium Current Visit: Yes Status: Acute Assessment & Plan: He has been disoriented and this may either be to delirium or underlying dementia. Code(s): R41.0 - DISORIENTATION, UNSPECIFIED
[2018-05-23] MEDS: THERAGRAN MULTIVITAMIN PO SCH (09:14)
[2018-05-23] MEDS: ECOTRIN 81 MG PO SCH (09:14)
[2018-05-23] MEDS: Zestril 5 MG PO SCH (09:14)
[2018-05-24] MEDS: Zestril 5 MG PO SCH (09:20)
[2018-05-24] MEDS: ECOTRIN 81 MG PO SCH (09:20)
[2018-05-24] MEDS: THERAGRAN MULTIVITAMIN PO SCH (09:20)
[2018-05-24] MEDS: TYLENOL 325 MG PO SCH (22:55)
[2018-05-25] MEDS: TYLENOL 325 MG PO SCH ×3 (09:50→21:16)
[2018-05-25] MEDS: Zestril 5 MG PO SCH (09:50)
[2018-05-25] MEDS: ECOTRIN 81 MG PO SCH (09:50)
[2018-05-25] MEDS: THERAGRAN MULTIVITAMIN PO SCH (09:50)
[2018-05-26] MEDS: TYLENOL 325 MG PO SCH ×3 (09:23→21:57)
[2018-05-26] MEDS: ECOTRIN 81 MG PO SCH (09:23)
[2018-05-26] MEDS: THERAGRAN MULTIVITAMIN PO SCH (09:23)
[2018-05-26] MEDS: Zestril 10 MG PO SCH (09:23)
--- NOTE | 2018-05-27 08:29 | PCM.NOTE ---
Date and Time: 05/27/18823 Subjective Assessment: He reports some pain along his left chest wall. Otherwise no concerns. He is eating his breakfast. - Review of Systems Constitutional: No Symptoms Eyes: No Symptoms Ears, Nose, & Throat: No Symptoms Respiratory: No Symptoms Cardiac: No Symptoms Abdominal/Gastrointestinal: No Symptoms Genitourinary Symptoms: No Symptoms Objective Exam General Appearance: no apparent distress, alert, other (pulse 60) Neurologic Exam: alert, other (oriented to person only. Says he doesn't know the name of this place and that the year is 1900.) Skin Exam: normal color, warm, dry, other (healing scrape on left anterior chest wall) Respiratory Exam: normal breath sounds, lungs clear, No crackles/rales, No rhonchi, No wheezing Cardiovascular Exam: regular rate/rhythm, No murmur, No friction rub, No gallop Gastrointestinal/Abdomen Exam: soft, normal bowel sounds, No tenderness, No distention, No mass Extremity Exam: normal inspection, other (no c/c/e) OBJECTIVE DATA Vital Signs: Vital Signs - 24 hr Temp Pulse Resp BP Pulse Ox 05/27/18 07:54 98.6 F 99 H 16 183/77 94 L 05/26/18 20:10 97.6 F 77 18 148/63 97 Pain Assessment - Last Documented Pain Intensity 0 Pain Scale Used [facility] Intake and Output: Intake & Output 05/25/18 05/26/18 05/27/18 05/28/18 06:59 06:59 06:59 06:59 Intake Total 340 1360 1480 240 Output Total 065 717 4160 100 Balance -35 385 -395 140 Multi-Disciplinary Progress Notes: Multi-Disciplinary Progress Notes 05/26/18 14:05 Case Management Note by India Dee CALL TO [facility] FOR F/U OF REFERRAL. SPOKE WITH SANNA. SANNA REPORTS THAT SHE IS GOING TO CALL [facility] FOR A DECISION AND CALL BACK. DISCUSSED THAT CURRENT PLAN IS FOR PT TO TRANSITION TO THEIR FACILITY ON WEDNESDAY, IF THEY ARE ACCEPTING. Initialized on 05/26/18 14:05 - END OF NOTE 05/26/18 10:05 (created 05/26/18 14:05) Case Management Note by India Dee LEVEL I PASRR FAXED TO [facility] Initialized on 05/26/18 14:05 - END OF NOTE 05/26/18 09:40 Case Management Note by Malissa Peña PAPERS COMPLETED, NO LEVEL II REQUIRED, SAMMIE NOTIFIED AND PAPERS PLACED IN CHART Initialized on 05/26/18 09:40 - END OF NOTE 05/26/18 09:00 (created 05/26/18 09:22) Case Management Note by India Dee PT'S MED LIST FAXED TO [facility] PER THEIR REQUEST. Initialized on 05/26/18 09:22 - END OF NOTE 05/26/18 08:25 (created 05/26/18 14:04) Case Management Note by India Dee LAST 7 DAYS OF MARS FAXED TO [facility] PER REQUEST Initialized on 05/26/18 14:04 - END OF NOTE Assessment/Plan (1) Gait instability Current Visit: Yes Status: Acute Assessment & Plan: Continue PT/OT. Plan to transition to rehab when bed is available. Code(s): R26.81 - UNSTEADINESS ON FEET (2) Fall Current Visit: Yes Status: Acute Code(s): W19.XXXA - UNSPECIFIED FALL, INITIAL ENCOUNTER (3) Aortic valve sclerosis Current Visit: Yes Status: Acute Assessment & Plan: Management per dial painter. Code(s): I35.8 - OTHER NONRHEUMATIC AORTIC VALVE DISORDERS (4) Aortic valve regurgitation Current Visit: Yes Status: Acute Code(s): I35.1 - NONRHEUMATIC AORTIC (VALVE ) INSUFFICIENCY (5) Delirium Current Visit: Yes Status: Acute Assessment & Plan: Continued. May have underlying dementia. Code(s): R41.0 - DISORIENTATION, UNSPECIFIED (6) Hypertension Current Visit: Yes Status: Acute Assessment & Plan: His dose of lisinopril was recently increased. Code(s): I10 - ESSENTIAL (PRIMARY) HYPERTENSION
[2018-05-27] MEDS ORDERED: Aplisol ID SCH (10:00)
[2018-05-27] MEDS: ECOTRIN 81 MG PO SCH (10:14)
[2018-05-27] MEDS: Zestril 10 MG PO SCH (10:14)
[2018-05-27] MEDS: TYLENOL 325 MG PO SCH ×3 (10:14→22:55)
[2018-05-27] MEDS: THERAGRAN MULTIVITAMIN PO SCH (10:14)
[2018-05-28] MEDS: TYLENOL 325 MG PO SCH ×3 (10:00→21:25)
[2018-05-28] MEDS: THERAGRAN MULTIVITAMIN PO SCH (10:26)
[2018-05-28] MEDS: ECOTRIN 81 MG PO SCH (10:27)
[2018-05-28] MEDS: Zestril 10 MG PO SCH (10:27)
[2018-05-29] MEDS: TYLENOL 325 MG PO SCH ×3 (10:15→22:28)
[2018-05-29] MEDS: ECOTRIN 81 MG PO SCH (10:15)
[2018-05-29] MEDS: THERAGRAN MULTIVITAMIN PO SCH (10:15)
[2018-05-29] MEDS: Zestril 10 MG PO SCH (10:16)
[2018-05-30 07:28] VITALS: BP 127/56; PULSE 56; O2SAT 94
--- NOTE | 2018-05-30 09:06 | PCM.DCORD ---
- Discharge Discharge Date: 05/30/18 Disposition: Skilled Care @ [facility] Condition: Good Prescriptions: New Multivitamins,Therapeutic Tab* [Theragran Multivitamin] 1 tab PO QAM tab Acetaminophen 325 mg [Tylenol 325 mg] 650 mg PO Q4H PRN #20 tablet PRN Reason: Pain Lisinopril 10 mg [Zestril 10 MG] 10 mg PO DAILY tablet Continue Aspirin EC 81 mg [Ecotrin 81 mg] 1 tab PO DAILY Calcium Carbonate [Tums] 1 tab PO DAILY Tamsulosin HCl 0.4 mg [Flomax 0.4 MG] 1 cap PO DAILY Follow up with: NICOLE RODRIGUEZ [Primary Care Provider] - 1 Week
[2018-05-30] MEDS: Zestril 10 MG PO SCH (10:15)
[2018-05-30] MEDS: TYLENOL 325 MG PO SCH (10:15)
[2018-05-30] MEDS: ECOTRIN 81 MG PO SCH (10:15)
[2018-05-30] MEDS: THERAGRAN MULTIVITAMIN PO SCH (10:15)
--- NOTE | 2018-05-31 12:21 | DS ---
DISCHARGE DIAGNOSES: 1) GAIT INSTABILITY. 2) FALL. 3) AORTIC VALVE SCLEROSIS. 4) AORTIC VALVE REGURGITATION. 5) DELIRIUM. 6) HYPERTENSION. DISCHARGE PHYSICAL EXAMINATION: VITALS: Temperature current 98.2F, temperature max 98.7F, heart rate 56 to 64, respiratory rate 18 to 20, blood pressure 123 to 134 over 56 to 59, weight 56.7 kg. Oxygen saturation 94 to 95% on room air. GENERAL: The patient is sitting up in his chair a pleasant talkative man in no acute distress. He is oriented to person. He said he is in a hospital in [place], [place]. He said the is 1999 something. CVS: His heart has a regular rate and rhythm. No murmurs, gallops or rubs are appreciated. CHEST: Clear to auscultation bilaterally. No crackles or wheezes. ABDOMEN: Soft, nontender, nondistended. EXTREMITIES: No clubbing, cyanosis or edema. SKIN: Warm, dry and intact. HOSPITAL COURSE: 1) GAIT INSTABILITY: He has been in a swing-bed for approximately 14 days. He has been doing PT. Plan to continue with it at [facility] and also continue OT. 2) FALL: He had a fall at home that resulted in rhabdomyolysis which the rhabdomyolysis has now resolved. He will need to have fall precautions. 3) AORTIC VALVE SCLEROSIS: He saw Dr. Garcia here, will continue with management per Dr. Garcia or his [place] physician. 4) AORTIC VALVE REGURGITATION: Continue management per Dr. Garcia or the [place] physician. 5) DELIRIUM: This has resolved. He most has some underlying dementia. 6) HYPERTENSION: His blood pressure is currently well controlled on his dose of lisinopril. DISCHARGE MEDICATIONS: Please see the discharge order. DISPOSITION: The patient will be discharged to [facility] for continued rehabilitation.
== END 2018-05-30 10:30 | DRG 92 ==
LOC: MED SURG 17:00
PROVIDERS: ADMIT Internal Medicine; ATTEND Internal Medicine
DX: R26.81 Unsteadiness on feet (principal); N30.00 Acute cystitis without hematuria; M62.82 Rhabdomyolysis; W19.XXXA Unspecified fall, initial encounter; R45.86 Emotional lability; I35.1 Nonrheumatic aortic (valve) insufficiency; I35.8 Other nonrheumatic aortic valve disorders; R41.0 Disorientation, unspecified; I10 Essential (primary) hypertension; Z79.899 Other long term (current) drug therapy
CPT/HCPCS: 36415; 80048; 82550; 97110-GP; A9270-GY

== ENCOUNTER 2019-10-26 13:31 | Emergency (ER) | payer MEDICARE ==
[2019-10-26] MEDS ORDERED: NORCO 5/325 MG PO ONE (13:41)
[2019-10-26] MEDS ORDERED: NORCO 5/325 MG ONE (13:45)
--- NOTE | 2019-10-26 14:11 | ERPHSYRPT ---
- History of Present Illness Time Seen by Provider: 10/26/19 13:40 Source: patient, family Exam Limitations: no limitations Patient Subjective Stated Complaint: Pt states "I was getting out of the car and I fell onto the gravel and hurt my right hip." Triage Nursing Assessment: Pt presented alert and oriented X 3, skin pwd Pt ambulates with much assistance. PT holding and grasping his right hip. Physician History: fell and hurt his right hip and hitting out of the car at around 11 AM today. Occurred: this morning Reason for Fall: tripped Injuries/Pain Location: lower extremity Loss of Consciousness: no loss of consciousness Quality: pressure, sharpness Severity of Pain-Max: moderate Severity of Pain-Current: moderate Modifying Factors: Improves With: movement Associated Symptoms (Fall): extremity injury, No abdominal pain, No back pain, No confusion, No chest pain, No headache, No lightheadedness, No muscle spasms, No nausea, No neck pain, No ringing in ears, No seizures, No shortness of breath , No slurred speech, No trouble walking, No vomiting Allergies/Adverse Reactions: morphine Allergy (Mild, Verified 10/26/19 13:32) Home Medications: Aspirin EC 81 mg [Ecotrin 81 mg] 1 tab PO DAILY 05/12/18 [History] Calcium Carbonate [Tums] 1 tab PO DAILY 05/12/18 [History] Tamsulosin HCl 0.4 mg [Flomax 0.4 MG] 1 cap PO DAILY 05/12/18 [History] Furosemide 20 mg [Lasix 20 mg] 20 mg DAILY 10/26/19 [History] Hx Tetanus, Diphtheria Vaccination/Date Given: Yes Hx Influenza Vaccination/Date Given: Yes Hx Pneumococcal Vaccination/Date Given: Yes Immunizations Up to Date: Yes - Review of Systems Constitutional: No Fever, No Chills Eyes: No Symptoms Ears, Nose, & Throat: No Symptoms Respiratory: No Cough, No Dyspnea Cardiac: No Chest Pain, No Edema, No Syncope Abdominal/Gastrointestinal: No Abdominal Pain, No Nausea, No Vomiting, No Diarrhea Genitourinary Symptoms: No Dysuria Musculoskeletal: Other (right hip pain posteriorly.), No Back Pain, No Neck Pain Skin: No Rash Neurological: No Dizziness, No Focal Weakness, No Sensory Changes Psychological: No Symptoms Endocrine: No Symptoms All Other Systems: Reviewed and Negative - Past Medical History Pertinent Past Medical History: Yes Neurological History: No Pertinent History ENT History: Cataracts Cardiac History: Myocardial Infarction ([place]) Respiratory History: No Pertinent History Endocrine Medical History: No Pertinent History Musculoskeletal History: No Pertinent History GI Medical History: No Pertinent History History: No Pertinent History Psycho-Social History: No Pertinent History Male Reproductive Disorders: No Pertinent History - Past Surgical History Past Surgical History: Yes Neuro Surgical History: No Pertinent History Cardiac: CABG Respiratory: No Pertinent History Gastrointestinal: Hernia Repair Genitourinary: No Pertinent History Musculoskeletal: No Pertinent History Male Surgical History: No Pertinent History Other Surgical History: AORTA REPLACEMENT - Social History Smoking Status: Former smoker Exposure to second hand smoke: No Drug Use: none Patient Lives Alone: No - Nursing Vital Signs Nursing Vital Signs: Initial Vital Signs Temperature 97.5 F 10/26/19 13:37 Pulse Rate 64 10/26/19 13:37 Respiratory Rate 20 10/26/19 13:37 Blood Pressure 109/62 10/26/19 13:37 O2 Sat by Pulse Oximetry 95 10/26/19 13:37 Pain Scale Pain Intensity 4 - [place] Coma Score Best Eye Response (Claudio): (4) open spontaneously Best Verbal Response ([place]): (5) oriented Best Motor Response (Claudio): (6) obeys commands [place] Total: 15 - Physical Exam General Appearance: no apparent distress, alert Head Injury: no evidence of injury Eye Exam: PERRL/EOMI ENT Exam: airway nml Neck Exam: normal inspection, No tenderness Respiratory/Chest Exam: normal breath sounds, No chest tenderness, No respiratory distress Cardiovascular Exam: normal heart sounds, regular rate/rhythm Gastrointestinal Exam: soft, No tenderness, No distention, No guarding, No ecchymosis Back Exam: normal inspection, No vertebral tenderness Extremity Exam: normal inspection, capillary refill <3 sec, pelvis stable, other (right hip pain posteriorly., tenderness, Painful ROM, Normal distal NV function), No deformities Neurologic Exam: alert, oriented x 3, cooperative, sensation nml, No motor deficits Skin Exam: normal color, warm, dry SpO2: 95 Ordered Tests: Active Orders 24 hr Category Date Time Status IV Insertion STAT Care 10/26/19 16:20 Ordered HIP UNI (2V) INCL PEL IF DONE Stat Exams 10/26/19 13:40 Taken LOWER EXTREMITY WO CONTRAST [CT] Stat Exams 10/26/19 14:28 Taken LUMBAR LIMITED (2 OR 3 VIEWS) Stat Exams 10/26/19 15:20 Taken CBC W DIFF Stat Lab 10/26/19 16:20 Ordered CMP Stat Lab 10/26/19 16:20 Ordered PROTIME WITH INR Stat Lab 10/26/19 16:23 Ordered Medication Summary Discontinued Medications Generic Name Dose Route Start Last Admin Trade Name Freq PRN Reason Stop Dose Admin Hydrocodone Bitart/Acetaminophen 1 tab 10/26/19 13:41 10/26/19 13:47 [place] 5/325 Mg PO 10/26/19 13:42 1 tab STAT ONE Administration Hydrocodone Bitart/Acetaminophen Confirm 10/26/19 13:45 [place] 5/325 Mg Administered 10/26/19 13:46 Dose 1 tab .ROUTE .STK-MED ONE Meperidine HCl 25 mg 10/26/19 16:21 Demerol 25mg Syringe IV 10/26/19 16:22 STAT ONE Ondansetron HCl 4 mg 10/26/19 16:20 Zofran 4 Mg/2 Ml Vial IV 10/26/19 16:21 STAT ONE - Progress Progress: improved Progress Note: questionable right hip on x ray We will do the CT scan of the right hip 10/26/19 14:29 10/26/19 15:24 CT scan is not done yet 10/26/19 16:18 I called [facility] for Tx 10/26/19 16:24 Dr. Huerta accepted the pt to [facility] Discussed with Dr.: Other (Dr. Huerta at [facility]) Counseled pt/family regarding: diagnosis - Departure Departure Disposition: Transfer Clinical Impression: Acetabular fracture Qualifiers: Encounter type: initial encounter Sublocation of acetabulum: unspecified portion of acetabulum Fracture type: closed Fracture alignment: displaced Laterality: right Qualified Code(s): S32.401A - Unspecified fracture of right acetabulum, initial encounter for closed fracture Inferior pubic ramus fracture Qualifiers: Encounter type: initial encounter Fracture type: closed Condition: Good Critical Care Time: No Referrals: NICOLE RODRIGUEZ [Primary Care Provider] -
[2019-10-26] MEDS ORDERED: Zofran 4 MG/2 ML VIAL IV ONE (16:20)
[2019-10-26] MEDS ORDERED: DEMEROL 25MG SYRINGE IV ONE (16:21)
[2019-10-26] MEDS ORDERED: DEMEROL 25MG SYRINGE ONE (16:27)
[2019-10-26] MEDS ORDERED: Zofran 4 MG/2 ML VIAL ONE (16:27)
[2019-10-26 16:50] VITALS: BP 140/62; PULSE 56; O2SAT 97
[2019-10-26 16:55] LABS: Absolute Neutrophil Ct (ANC) 11.05 (1.4-6.9); BASOPHIL % 0.1 % (0.0-0.4); Basophil (Absolute #) 0.01 (0-0.4); Eosinophil % 0.4 % (0.00-5.0); Eosinophil (Absolute #) 0.06 (0-0.5); Hematocrit 34.3 % (42-50); Hemoglobin 11.2 gm/dl (12.5-18.0); Lymphocyte (Absolute #) 1.12 (1.0-4.6); Lymphocytes % 8.2 % (24.0-44.0); Mean Cell Volume 87.1 fl (78-100); Mean Corpuscular Hemoglobin 28.4 pg (26-32); Mean Corpuscular Hgb Concent. 32.7 g/dl (32-36); Monocyte (Absolute #) 1.36 (0.0-1.3); Neutrophil % 81.3 % (36.0-66.0); Platelet Count 157 K/mm3 (150-450); Red Blood Count 3.94 M/mm3 (4.1-5.6); Red Cell Distribution Width 14.7 % (11.5-14.0); White Blood Count 13.6 K/mm3 (4.0-10.5)
[2019-10-26 17:08] LABS: INR 1.1 (0.8-3.0); PROTIME 12.4 SECONDS (8.83-12.87)
[2019-10-26 17:12] LABS: ALBUMIN 3.7 g/dL (3.5-5.0); ANION GAP 10.4 MEQ/L (5-15); BILIRUBIN,TOTAL 0.4 mg/dL (0.2-1.3); Calcium 9.5 mg/dL (8.4-10.2); Creatinine 1 1.82 mg/dL (0.66-1.25); Potassium 4.2 mmol/L (3.5-5.1); Total Protein 6.7 g/dL (6.3-8.2)
--- NOTE | 2019-10-26 19:52 | XRAY ---
Indication: Right hip pain following fall. Multiple contiguous axial images obtained through the right hip. Two-dimensional sagittal and coronal reformatted images obtained. Comparison: CT abdomen/pelvis May 11, 2018. There is age-related osteopenia. Right acetabulum demonstrates comminuted fractures involving all the cordova. Anterior wall fractures appears minimally displaced. Also nondisplaced fractures involving the right inferior pubic ramus. Right hip articulation intact with joint space narrowing. Femur demonstrates a few small subcapital bone cysts and tiny lesser trochanter spurring. Initial tuberosity demonstrates 5 mm sclerotic lesion, probable bone island. Mild scattered vascular calcifications. Visualized pelvic contents demonstrates scattered colonic diverticulosis. Impression: 1. Comminuted right acetabulum fracture as detailed. Additional nondisplaced fractures right inferior pubic ramus. 2. Osteopenia and degenerative changes. CTDI 15.74
--- NOTE | 2019-10-26 19:54 | XRAY ---
Indication: Pain following fall. Comparison: None 2 views of the right hip demonstrates acetabulum fracture and inferior pubic ramus fracture further detailed on same-day CT exam. Elsewhere osteopenia, lower lumbar degenerative spondylosis, and scattered vascular calcifications.
--- NOTE | 2019-10-26 21:26 | XRAY ---
Indication: Pain following fall. Comparison: CT lumbar spine May 11, 2018. 3 views of the lumbar spine grossly unchanged again demonstrating osteopenia, moderate dextrorotoscoliosis, moderate multilevel degenerative spondylosis, L5 spondylolysis with grade 2 spondylolisthesis, scattered vascular calcifications, and cholecystectomy. Right hip fracture reported separately.
== END 2019-10-26 17:25 | disposition short-term general hospital (02) ==
LOC: ED 13:31
DX: S32.401A Unspecified fracture of right acetabulum, initial encounter for closed fracture (principal); W01.0XXA Fall on same level from slipping, tripping and stumbling without subsequent striking against object, initial encounter; Z79.899 Other long term (current) drug therapy; I25.2 Old myocardial infarction; M25.551 Pain in right hip
CPT/HCPCS: 36415; 72100; 73502; 73700; 80053; 85025; 85610; 96374; 96375; 99285; J2175; J2405; A9270-GY